=== PATIENT | female | born 1970 | race Caucasian/White ===

== ENCOUNTER 2017-03-27 12:08 | Day surgery (SDC) | payer BC, OTHER ==
[~2017-03-27] VITALS: Ht 167.6 cm; Wt 121.8 kg
[~2017-03-27 12:08] MED LIST: SERT100T
[2017-03-27 12:37] VITALS: Ht 167.6 cm; Wt 121.8 kg
[2017-03-27] MEDS ORDERED: JANUMET (12:44)
[2017-03-27] MEDS ORDERED: METFORMIN (12:44)
[2017-03-27 13:02] VITALS: BP 129/67; PULSE 59; RESP 23
[2017-03-27] MEDS ORDERED: LIDOCAINE 4% SOLUTION 50 ML BTL ONE (13:59)
--- NOTE | 2017-03-27 14:37 | OPPN ---
Date/Time of Note Date/Time of Note DATE: 03/27/17 TIME: 14:33 Upper endoscopy normal but random biopsy of the stomach and duodenum done separately First symptoms continue consider small bowel series Follow-up 2 weeks in my office Operative Report Preoperative Diagnosis Abdominal pain nausea vomiting diarrhea Postoperative Diagnosis Normal upper endoscopy Operation/Procedure Performed EGD biopsy of the duodenum , random biopsy of stomach Surgeon see signature line learning and development assistant None Anesthesia: moderate sedation (Versed 3 mg/fentanyl 50 mcg/total. Of moderate sedation 20 minutes) Estimated blood loss: none Transfusion Required none Specimen Biopsy of the duodenum to rule out causes of diarrhea Biopsy of stomach random to rule out H. pylori Grafts/Implants none Complications none OLINDA JIMÉNEZ MD Mar 27, 2017 14:37
[2017-03-27] MEDS ORDERED: MIDAZOLAM 1 MG/ML 2 ML INJ ONE ×2 (14:38→14:39)
[2017-03-27] MEDS ORDERED: FENTAnyl 50 MCG/ML VIAL ONE (14:39)
[2017-03-27 14:49] VITALS: BP 141/72; RESP 18
--- NOTE | 2017-03-27 15:03 | GILP ---
DATE OF PROCEDURE: 03/27/2017 DIAGNOSIS: Abdominal pain, nausea, vomiting, and diarrhea. PROCEDURES: EGD, biopsy of the duodenal bulb, and biopsy of the stomach. POSTOP DIAGNOSIS: Essentially normal upper endoscopy. DESCRIPTION OF PROCEDURE: The patient was put in left lateral decubitus, after obtaining informed consent, was given 4 percent xylocaine 2 gargle and she received 3 mg IV Versed and 50 mcg of fentanyl. I very carefully advanced Olympus video upper endoscope into the esophagus, stomach and duodenum. Esophagus in its entire length is normal. The GE junction normal. Stomach, including retroflexion of the fundus yaritza, body and antrum normal, but random biopsy done on the way out to rule out any H pylori. Duodenal medially entered through the pyloric channel, duodenal bulb, first and second part normal. Biopsies were done from the third and second part because of history of diarrhea and sent to histopathology. Postop the patient had no complications. PLAN: Will be to await for biopsy report. Follow up as outpatient. If she continues to have symptoms, consider small bowel series. Dictated By: Becka Salinas MD /yasmin/john /Document#: [id number] CC: Alvaro Hernandez MD; Dr. Alvaro Holley;*[facility]*
== END 2017-03-27 15:26 | disposition home or self-care (01) ==
LOC: GIL 12:08
PROVIDERS: ATTEND Internal Medicine
DX: R10.9 Unspecified abdominal pain (principal); R11.2 Nausea with vomiting, unspecified; R19.7 Diarrhea, unspecified; E66.9 Obesity, unspecified; Z68.41 Body mass index [BMI] 40.0-44.9, adult; Z87.11 Personal history of peptic ulcer disease
CPT/HCPCS: 43239; 82962; 88305; J2250; J3010; Z7610

== ENCOUNTER 2018-02-24 12:14 | Day surgery (SDC) | END 2018-02-24 16:00 | disposition home or self-care (01) ==

== ENCOUNTER 2018-09-23 07:43 | Inpatient (IN) | payer BC ==
[~2018-09-23] VITALS: Ht 167.6 cm; Wt 100.1 kg
[2018-09-23] VITALS (36 sets, daily range): BP systolic 98–163; BP diastolic 60–91; PULSE 68–114; RESP 14–31; Ht 167.6 cm; Wt 100.1 kg
[~2018-09-23 07:43] MED LIST changes: +ASPI-1046 PO; +ATOR40TA68 PO; +CEFAZOLIN 2 GM/50 ML (PMX) 50 ML IVPB ONE; +CETI10CA PO; +EMPA25TA PO; +LANS15CA5 PO; +MTF1000T PO; +SERT-165 PO; -SERT100T; +SOD CHLORIDE 0.9% 1,000 ML IV SCH
[2018-09-23] MEDS ORDERED: PHEN37.53 PO (08:39)
[2018-09-23] MEDS ORDERED: ERGO500013 PO (08:40)
[2018-09-23] MEDS ORDERED: BUPIVACAINE 0.25% (MPF) 30 ML INJ ONE (11:34)
[2018-09-23] MEDS ORDERED: POLYMYXIN/BACITRACIN 1L IRRIG ONE (11:34)
--- NOTE | 2018-09-23 11:43 | PREAC ---
Date/Time of Note Date/Time of Note DATE: 09/23/18 TIME: 11:40 Anesthesia Eval and Record Evaluation Time Pre-Procedure Interview DATE: 09/23/18 TIME: 11:40 Age 48 Sex female NPO: 8 hrs Preoperative diagnosis VENTRAL INCISIONAL HERNIA Planned procedure OPEN COMPONENT SEPARATION AND INCISIONAL HERNIA REPAIR Past Medical History Past Medical History: Includes GI: Obesity Surgery & Anesthesia Issues No known issue Meds Anticoagulation: Yes Beta Jeana within 24 hr: Yes Reported Medications Ergocalciferol (Vitamin D2) (VITAMIN D2) 50,000 Unit Capsule, 85155 UNIT PO EVERY THURSDAY, CAP 09/23/18 Phentermine Hcl (Phentermine Hcl) 37.5 Mg Tablet, 37.5 MG PO DAILY, TAB 09/23/18 Aspirin* (Aspirin* (EC)) 81 Mg Tablet.dr, 81 MG PO DAILY, TAB 02/23/18 Lansoprazole* (Lansoprazole*) 15 Mg Capsule.dr, 15 MG PO DAILY, CAP 02/23/18 Empagliflozin (Jardiance) 25 Mg Tablet, 25 MG PO, TAB 02/23/18 Atorvastatin* (Atorvastatin*) 40 Mg Tablet, 20 MG PO QHS, #30 TAB 02/23/18 Sertraline Hcl* (Sertraline Hcl*) 100 Mg Tablet, 100 MG PO DAILY, #30 TAB 02/23/18 Metformin* (Glucophage*) 1,000 Mg Tablet, 1000 MG PO BID, #60 TAB 02/23/18 Discontinued Reported Medications Cetirizine Hcl* (Zyrtec*) 10 Mg Capsule, 10 MG PO DAILY, TAB 02/23/18 Current Medications Sodium Chloride 1,000 ml @ 75 mls/hr [id number] IV ; Start 09/23/18 at 07:00 Meds reviewed: Yes Allergies Coded Allergies: No Known Allergies (Verified Allergy, Unknown, 09/23/18) Allergies Reviewed: Yes Labs/Studies Labs Reviewed: Reviewed by anesthesiologist test: N/A Studies: ECG (NL), CXR (NAPD) Pre-procedure Exam Last vitals Vital Signs Date Temp Pulse Resp B/P (MAP) Pulse Ox O2 O2 Flow FiO2 Time Delivery Rate 09/23/18 96.7 72 16 123/80 97 Room Air 10:07 (94) Airway: Adequate mouth opening, Adequate thyromental dist Mallampati: Mallampati II Teeth: Abnormal (SEVERAL MISSING TEETH, NO LOOSE, TOP) Lung: Normal Heart: Normal ASA Physical Status ASA physical status: 2 Emergency: None Planned Anesthetic General/MAC: ETT Neuraxial: Spinal Planned Pain Management Sub-arachniod narcotics, Parenteral pain med Pre-operative Attestations Prior to commencing anesthesia and surgery, the patient was re-evaluated, there was verification of: *The patient's identity *The results of appropriate recent lab work and preoperative vital signs *The above evaluation not changing prior to induction *Anesthetic plan, risk benefits, alternative and complications discussed with patient/family; questions answered; patient/family understands, accepts and wishes to proceed. Oli Nation M.D. Sep 23, 2018 11:43
[2018-09-23] MEDS ORDERED: morphine SULFATE/PF (10 MG/10 ML) INJ ONE (11:49)
[2018-09-23] MEDS ORDERED: EPINEPHrine 1 MG INJ ONE (11:49)
[2018-09-23] MEDS ORDERED: GLYCOPYRROLATE 0.4 MG INJ ONE (11:56)
[2018-09-23] MEDS ORDERED: NEOSTIGMINE 3 MG/3 ML SYRINGE ONE (11:56)
[2018-09-23] MEDS ORDERED: PROPOFOL 20 ML ONE (11:56)
[2018-09-23] MEDS ORDERED: CEFAZOLIN 1 GM INJ ONE (11:56)
[2018-09-23] MEDS ORDERED: ROCURONIUM 50 MG INJ ONE ×2 (11:56→12:00)
[2018-09-23] MEDS ORDERED: ONDANSETRON 4 MG INJ ONE (11:57)
[2018-09-23] MEDS ORDERED: MIDAZOLAM 1 MG/ML 2 ML INJ ONE (11:57)
[2018-09-23] MEDS ORDERED: DEXAMETHASONE 4 MG/ML 5 ML INJ ONE (11:57)
[2018-09-23] MEDS ORDERED: FENTAnyl 50 MCG/ML VIAL ONE ×3 (11:57→13:23)
[2018-09-23] MEDS ORDERED: DESFLURANE 15 MIN ONE (12:00)
[2018-09-23] MEDS ORDERED: IPRATROPIUM (NEB) 0.5 MG/2.5 ML AMP HHN PRN (12:00)
[2018-09-23] MEDS ORDERED: DIPHENHYDRAMINE 50 MG INJ IV PRN ×2 (12:00→12:30)
[2018-09-23] MEDS ORDERED: ONDANSETRON 4 MG INJ IV PRN ×2 (12:00→12:30)
[2018-09-23] MEDS ORDERED: FENTAnyl 50 MCG/ML VIAL IV PRN ×3 (12:00)
[2018-09-23] MEDS ORDERED: TRIMETHOBENZAMIDE 100 MG/ML VIAL IM PRN ×2 (12:00→12:30)
[2018-09-23] MEDS ORDERED: LABETALOL HCL 20MG INJ IV PRN (12:00)
[2018-09-23] MEDS ORDERED: hydrALAzine 20 MG INJ IV PRN (12:00)
[2018-09-23] MEDS ORDERED: ALBUTEROL 0.083% (NEB) 2.5 MG/3 ML AMP HHN PRN (12:00)
[2018-09-23] MEDS ORDERED: OXYCODONE/ACETAMINOPHEN (5/325) TAB PO PRN ×2 (12:00)
[2018-09-23] MEDS ORDERED: EPHEDrine SULFATE 50 MG/5 ML SYG IV PRN (12:00)
[2018-09-23] MEDS ORDERED: MEPERIDINE 25 MG INJ IV PRN (12:00)
[2018-09-23] MEDS ORDERED: MIDAZOLAM 1 MG/ML 2 ML INJ IV PRN (12:00)
[2018-09-23] MEDS ORDERED: HYDROmorphONE 1 MG/5 ML IV SYRINGE IV PRN ×3 (12:00)
[2018-09-23] MEDS ORDERED: HYDROmorphONE 0.5 MG/0.5 ML SYG IV PRN ×2 (12:30)
[2018-09-23] MEDS ORDERED: NALOXONE (0.4 MG/ML) INJ IV PRN ×2 (12:30→13:30)
[2018-09-23] MEDS ORDERED: ZOLPIDEM 5 MG TAB PO PRN (12:30)
[2018-09-23] MEDS ORDERED: NALBUPHINE HCL (10 MG/1 ML) INJ IV PRN (12:30)
[2018-09-23] MEDS ORDERED: hydrALAzine 20 MG INJ ONE (12:46)
[2018-09-23] MEDS ORDERED: BUPIVACAINE 0.5% (SDV) 30 ML INJ ONE (13:12)
[2018-09-23] MEDS ORDERED: SUGAMMADEX SODIUM 200 MG/2 ML VIAL IV ONE (13:15)
[2018-09-23] MEDS ORDERED: SOD CHLORIDE 0.9% 1,000 ML IV SCH (13:23)
[2018-09-23] MEDS ORDERED: HYDROCODONE/APAP (5/325) TAB PO PRN (13:30)
--- NOTE | 2018-09-23 13:44 | OPR ---
Date/Time of Note Date/Time of Note DATE: 09/23/18 TIME: 13:28 Operative Report Procedure Date: Sep 23, 2018 Preoperative Diagnosis abdominal wall defect and recurrent incarcerated incisional hernia and umbilical hernia Postoperative Diagnosis same Operation/Procedure Performed 1. right rectus musculocutaneous flap cpt code 40107 2. left rectus musculocutaneous flap cpt code 62473 3. implantation of abdominal mesh polypropylene 15 x 15 cm mesh cpt code 61373 4. open lysis of adhesions 5. resection of abdominal mass 7 cm mass 6. localized adjacent tissue transfer with the use of skin flaps of 69 sq cm defect in the abdomen 7. open recurrent incarcerated incisional hernia repair cpt code cpt code 01129 8. removal of foreign body from the abdomen 9. excision of hernia sac 10. open repair of incarcerated umbilical hernia cpt code 20021 11. reimplantation and reconstruction of umbilicus 12. therapeutic injection of subcutaneous local anesthesia Surgeon see signature line Hat Blocking Machine Operator Frankie Kilgore Anesthesia Type: general Estimated Blood Loss: 50 - 100 ml's Transfusion none Specimen hernia sac foreign body abdominal mass Grafts/Implants none Complications none Pt Condition Post Procedure: stable Indications This is a 48-year-old female with a very complicated surgical history. She has had prior incisional hernias that were repaired with recurrence. She also has an umbilical hernia that is incarcerated. In addition she also has a mid epigastric wall defect. She required surgical repair of all the 3 problems. Risks alternatives benefits and percent were discussed with the patient. Potential complications including but not limited to bleeding infection mesh infection mesh migration recurrence of hernias need for additional operations intra-abdominal organ injury were discussed the patient. Patient expressed understanding and consents to the operation. Procedure Description Patient is taken to the OR and prepped and draped in the usual sterile fashion. Surgical time out was performed. IV antibiotics were given. Midline generous incision was made with a 10 blade. There was a pigmented abdominal mass that appeared to be concerning as an incidental finding. This was excised and sent for specimen. The incision was then taken down to the mid epigastric region where there was virgin space and down to the decussation's of the rectus sheath. This area was then divided. The abdomen was entered. This incision was taken superiorly to the subxiphoid region and inferiorly to the area of concern of the multiple hernias. The recurrent incisional hernia defect was identified. This area was then reduced manually. Very large foreign body was identified. Care ful dissection was performed to do extensive lysis of adhesions to take off all the adhesions to the prior surgical site. This foreign body was then also peeled off and resected. This foreign body was then sent for specimen. Additionally there was a hernia sac was also resected and sent for specimen. The incision was then taken down further and the umbilical hernia was identifi ed. This was also opened and manually reduced after full reduction of both hernias, the incision was extended inferiorly to the area of strong fascial tissue. We then developed the left rectus muscular cutaneous flap. The retrorectus space was entered by first identifying the rectus sheath and making a small incision in the retrorectus space. This incision was then extended sup eriorly all the way to the subxiphoid space and all the way inferiorly to the area of the most inferior point of the incision. We also did this on the right side by developing the right rectus musculocutaneous flap. A small incision was made in the retrorectus space and this incision was extended superiorly all the way to the subxiphoid space and inferiorly to the most inferior aspect of the incision. Additional lysis of adhesions was performed to take away any adhesions against the anterior abdominal wall. The fascial edges were freshened of the posterior rectus sheath. The posterior rectus sheath was then reapproximated by running a #1 loop PDS from the superior incisional point although to the midpoint and from the inferior incisional point to the midpoint this was then tied down in the middle. After developing the retrorectus space and ensuring good hemostasis a polypropylene mesh 15 x 15 cm mesh was cut to fashion in a diagonal aspect to allow coverage of this whole incision. This was placed in the retrorectus space with multiple interrupted #1 Prolenes along the anterior rectus sheath with interrupted sutures on both the rectus muscles and at the apex and the inferior aspect of the incision. Once again hemostasis was ensured. The 2 right and left rectus muscular cutaneous flaps were then reapproximated with a running #1 loop PDS from superior to inferior and inferior superior and tied in the middle. The surgical wound was then reexamined for hemostasis and good hemostasis was established. This allowed d repair of the midepigastric hernia and the recurrent incisional incarcerated hernia and the umbilical hernia. The umbilicus had been disconnected and the umbilical stalk was reconnected to the anterior abdominal wall with an interrupted 2-0 Vicryl. Due to the very large tissue defect localized adjacent transfer with the use of skin flaps were used to close the large wound defect. The skin was closed with interrupted 3-0 Vicryl and skin pino. Spinal anesthesia was performed by the anesthesiologist the beginning of the case. Additional subcutaneous local anesthesia was injected throughout the incision site. Dry dressings were applied. Logan DE LA ROSA Sep 23, 2018 13:38
[2018-09-23] MEDS: HYDROmorphONE 0.2 MG/ML PCA IV SCH ×2 (13:51→18:41)
[2018-09-23] MEDS: CEFAZOLIN 2 GM/50 ML (PMX) 50 ML IVPB SCH ×2 (14:35→21:54)
[2018-09-23] MEDS: POTASSIUM CHLORIDE 40 MEQ in SOD CHLORIDE 0.45% 1,000 ML IV SCH (18:30)
[2018-09-23] MEDS ORDERED: GLUCOSE GEL 15 GRAM TUBE PO PRN ×2 (21:00)
[2018-09-23] MEDS ORDERED: DEXTROSE 50% 50 ML SYRINGE IV PRN ×2 (21:00)
[2018-09-23] MEDS ORDERED: GLUCOSE GEL 15 GRAM TUBE BUCCAL PRN (21:00)
[2018-09-23] MEDS: ACCU-CHEK XX SCH (21:00)
[2018-09-23] MEDS ORDERED: GLUCAGON 1 MG INJ IM PRN (21:00)
[2018-09-23] MEDS: metFORMIN 500 MG TAB PO SCH (21:26)
[2018-09-23] MEDS: ATORVASTATIN 20 MG TAB PO SCH (21:26)
[2018-09-24 00:15] VITALS: BP 148/86; PULSE 84; RESP 20
[2018-09-24] MEDS: HYDROmorphONE 0.2 MG/ML PCA IV SCH ×3 (00:39→14:31)
[2018-09-24] MEDS: POTASSIUM CHLORIDE 40 MEQ in SOD CHLORIDE 0.45% 1,000 ML IV SCH ×2 (02:00→06:58)
[2018-09-24] MEDS ORDERED: LANSOPRAZOLE 15 MG CAP PO SCH (06:00)
[2018-09-24] MEDS: CEFAZOLIN 2 GM/50 ML (PMX) 50 ML IVPB SCH (07:33)
[2018-09-24 08:29] VITALS: BP 148/77; PULSE 75; RESP 20
[2018-09-24] MEDS: ACCU-CHEK XX SCH ×4 (08:30→21:00)
[2018-09-24] MEDS: metFORMIN 500 MG TAB PO SCH ×2 (08:48→18:28)
[2018-09-24] MEDS: SERTRALINE 100 MG TAB PO SCH (08:48)
[2018-09-24] MEDS: ASPIRIN (EC) 81 MG TAB PO SCH (08:48)
[2018-09-24] MEDS ORDERED: PHENTERMINE HCL 37.5 MG PO SCH (09:00)
[2018-09-24] MEDS ORDERED: 1/2 NS + KCL 20 MEQ 1,000 ML IV SCH (10:30)
[2018-09-24] MEDS ORDERED: ONDANSETRON 4 MG INJ IV PRN (10:30)
--- NOTE | 2018-09-24 11:18 | HP ---
Date/Time of Note Date/Time of Note DATE: 09/24/18 TIME: 10:39 Assessment/Plan VTE Prophylaxis Risk score (from Nsg)>0 risk: 2 SCD applied (from Nsg): Yes Lines/Catheters IV Catheter Type (from Nrsg): Peripheral IV Assessment/Plan Assessment/Plan -abdominal wall defect and recurrent incarcerated incisional hernia and umbilical hernia - open recurrent incarcerated incisional hernia repair; reimplantation and reconstruction of umbilicus; sp resection of abdominal mass 7 cm mass - per surgery - IVF - pain control - SCD - Acute nausea/vomitting - per sx - NGT to Low intermittent suction - Drug use- occasional Patient seen in collaboration with Dr Mi Result Diagram: 09/24/186 09/24/18 0446 Results 24hrs Laboratory Tests Test 09/23/18 14:15 09/23/18 14:31 09/23/18 15:12 09/23/18 18:25 White Blood Count 12.7 H Red Blood Count 5.36 Hemoglobin 14.0 Hematocrit 45.4 Mean Corpuscular 84.7 Volume Mean Corpuscular 26.1 L Hemoglobin Mean Corpuscular 30.8 L Hemoglobin Concent Red Cell 14.2 Distribution Width Platelet Count 263 Mean Platelet 9.9 Volume Immature 0.500 H Granulocytes % Neutrophils % 77.3 H Lymphocytes % 16.9 Monocytes % 3.1 Eosinophils % 1.8 Basophils % 0.4 Nucleated Red 0.0 Blood Cells % Immature 0.060 H Granulocytes # Neutrophils # 9.8 H Lymphocytes # 2.2 Monocytes # 0.4 Eosinophils # 0.2 Basophils # 0.1 Nucleated Red 0.0 Blood Cells # CBC Results 1 *H Faxed/Phoned Sodium Level 145 H 143 Potassium Level 2.5 *L 4.2 Chloride Level 118 H 108 # Carbon Dioxide 17 L 25 Level Anion Gap 10 10 Blood Urea 10 14 Nitrogen Creatinine 0.34 L 0.54 Est Glomerular > 60 > 60 Filtrat Rate mL/min Glucose Level 95 122 Calcium Level 5.9 *L 9.7 Total Bilirubin 0.2 Direct Bilirubin 0.00 Indirect Bilirubin 0.2 Aspartate Amino 11 L Transf (AST/SGOT) Alanine 21 Aminotransferase ( ALT/SGPT) Alkaline 53 Phosphatase Total Protein 4.5 L Albumin 2.3 L Globulin 2.20 Albumin/Globulin 1.04 Ratio Bedside Glucose 122 150 Test 09/23/18 21:24 09/24/18 04:46 09/24/18 07:02 09/24/18 08:52 Bedside Glucose 150 107 White Blood Count 11.5 H Red Blood Count 4.66 Hemoglobin 12.1 Hematocrit 40.2 Mean Corpuscular 86.3 Volume Mean Corpuscular 26.0 L Hemoglobin Mean Corpuscular 30.1 L Hemoglobin Concent Red Cell 14.3 Distribution Width Platelet Count 275 Mean Platelet 10.3 Volume Immature 0.400 Granulocytes % Neutrophils % 82.3 H Lymphocytes % 10.8 L Monocytes % 6.3 Eosinophils % 0.0 Basophils % 0.2 Nucleated Red 0.0 Blood Cells % Immature 0.050 H Granulocytes # Neutrophils # 9.4 H Lymphocytes # 1.2 Monocytes # 0.7 Eosinophils # 0.0 Basophils # 0.0 Nucleated Red 0.0 Blood Cells # Sodium Level 139 Potassium Level 5.3 H Chloride Level 101 Carbon Dioxide 27 Level Anion Gap 11 Blood Urea 14 Nitrogen Creatinine 0.46 Est Glomerular > 60 Filtrat Rate mL/min Glucose Level 102 Calcium Level 9.6 Total Bilirubin 0.4 Direct Bilirubin 0.00 Indirect Bilirubin 0.4 Aspartate Amino 23 Transf (AST/SGOT) Alanine 16 Aminotransferase ( ALT/SGPT) Alkaline 82 # Phosphatase Total Protein 7.0 # Albumin 4.1 # Globulin 2.90 Albumin/Globulin 1.41 Ratio Lab Scanned Report REFERENCE LAB HPI/ROS Admit Date/Time Admit Date/Time Sep 23, 2018 at 13:59 ROS This is a 48-year-old female with a very complicated surgical history who had prior incisional hernias that were repaired with recurrence. She also has an umbilical hernia that is incarcerated. In addition she also has a mid epigastric wall defect. Per surgery, she required surgical repair of all the 3 problems. Patient is assessed in room- c/o abdominal incisional pain. denies any chest pain. Patient is admitted for further treatment/evaluation under Dr Mi for further treatment and evaluation.. Patient c/o nausea and started throwing up per staff- Dr Arreola was notified; NGT inserted. cont to monitor Respiratory: no complaints Cardiovascular: no complaints Gastrointestinal: pain Musculoskeletal: no complaints Skin: no complaints Neurologic: no complaints Endocrine: no complaints PMH/Family/Social Past Medical History Medications Current Medications Zolpidem Tartrate (Ambien) 5 mg HS MAY REPEAT X 1 PRN PO .INSOMNIA; Start 09/23/18 at 12:30 Cefazolin Sodium/ Dextrose 50 ml @ 100 mls/hr Q8H IVPB Last administered on 09/24/18at 07:33; Admin Dose 100 MLS/HR; Start 09/23/18 at 13:30; Stop 09/24/18 at 13:29 Acetaminophen/ Hydrocodone Bitart ([place] (5/325)) 1 tab Q6H PRN PO PAIN LEVEL 6-10; Start 09/23/18 at 13:30; Status Hold Naloxone HCl (Narcan) 0.2 mg Q2M PRN IV RR 8 BREATHS/MIN OR LESS; Start 09/23/18 at 13:30 Hydromorphone HCl (Dilaudid [employer]) Q4PCA IV Last administered on 09/24/18at 07:03; Admin Dose 6 MG; Start 09/23/18 at 13:30 Aspirin (Halfprin) 81 mg DAILY PO Last administered on 09/24/18 08:48; Admin Dose 81 MG; Start 09/24/18 at 09:00 Atorvastatin Calcium (Lipitor) 20 mg QHS PO Last administered on 09/23/18 21:26; Admin Dose 20 MG; Start 09/23/18 at 21:00 Lansoprazole (Prevacid) 15 mg DAILY@0600 PO Last administered on 09/24/18at 06:52; Admin Dose 15 MG; Start 09/24/18 at 06:00 Metformin HCl (Glucophage) 1,000 mg BID WITH MEALS PO Last administered on 09/24/18 08:48; Admin Dose 1,000 MG; Start 09/23/18 at 21:00 Sertraline HCl (Zoloft) 100 mg DAILY PO Last administered on 09/24/18 08:48; Admin Dose 100 MG; Start 09/24/18 at 09:00 Miscellaneous Information 37.5 mg DAILY PO ; Start 09/24/18 at 09:00; Status UNV Diagnostic Test (Pha) (Accu-Chek) 1 ea AC MEALS AND BEDTIME XX Last administered on 09/24/18 08:30; Admin Dose 1 EA; Start 09/23/18 at 21:00 Miscellaneous Information 1 ea NOTE XX ; Start 09/23/18 at 21:00 Glucose (Glutose) 15 gm Q15M PRN PO DECREASED GLUCOSE; Start 09/23/18 at 21:00 Glucose (Glutose) 22.5 gm Q15M PRN PO DECREASED GLUCOSE; Start 09/23/18 at 21:00 Dextrose (D50w Syringe) 25 ml Q15M PRN IV DECREASED GLUCOSE; Start 09/23/18 at 21:00 Dextrose (D50w Syringe) 50 ml Q15M PRN IV DECREASED GLUCOSE; Start 09/23/18 at 21:00 Glucagon (Glucagen) 1 mg Q15M PRN IM DECREASED GLUCOSE; Start 09/23/18 at 21:00 Glucose (Glutose) 15 gm Q15M PRN BUCCAL DECREASED GLUCOSE; Start 09/23/18 at 21:00 Ondansetron HCl (Zofran Inj) 4 mg Q6H PRN IV NAUSEA AND/OR VOMITING; Start 09/24/18 at 10:30 Potassium Chloride/Sodium Chloride 1,000 ml @ 100 mls/hr Q10H IV Last administered on 09/24/18at 10:29; Admin Dose 100 MLS/HR; Start 09/24/18 at 10:30 Coded Allergies: No Known Allergies (Verified Allergy, Unknown, 09/23/18) Past Surgical History tonsillectomy ankle sx Social History Alcohol Use: none Smoking Status: Never smoker Drug Use: other Exam/Review of Systems Vital Signs Vitals Vital Signs Date Temp Pulse Resp B/P (MAP) Pulse Ox O2 O2 Flow FiO2 Time Delivery Rate 09/24/18 98.3 75 20 148/77 96 08:29 (100) 09/24/18 2.0 00:15 09/23/18 Nasal 19:40 Cannula Intake and Output 09/23/18 09/23/18 09/24/18 1515:00 23:00 07:00 IntakeIntake Total 2000 ml 660 ml 1360 ml OutputOutput Total 100 ml 500 ml 700 ml BalanceBalance 1900 ml 160 ml 660 ml Exam Constitutional: alert, well developed Psych: nl mood/affect Eyes: nl lids, nl sclera Neck: non-tender Respiratory: diminished breath sounds Cardiovascular: nl pulses, other (s1s2) Gastrointestinal: soft, non-tender, other (surgical abdomen; abdominal pad dressing noted- ) Musculoskeletal: nl extremities to inspection Neurological: nl speech Lymph: nontender SADEORA,TREVOR Sep 24, 2018 10:49
--- NOTE | 2018-09-24 12:55 | PN ---
Date/Time of Note Date/Time of Note DATE: 09/24/18 TIME: 12:54 Assessment/Plan VTE Prophylaxis Risk score (from Nsg)>0 risk: 2 SCD applied (from Nsg): Yes Pharmacological prophylaxis: other Lines/Catheters IV Catheter Type (from Nrsg): Peripheral IV Assessment/Plan Assessment/Plan s/p component separation doing well needs continued pain control with INFRASTRUCTURE ENGINEER Result Diagram: 09/24/18 0446 09/24/18 0446 Results 24hrs Laboratory Tests Test 09/23/18 14:15 09/23/18 14:31 09/23/18 15:12 09/23/18 18:25 White Blood Count 12.7 H Red Blood Count 5.36 Hemoglobin 14.0 Hematocrit 45.4 Mean Corpuscular 84.7 Volume Mean Corpuscular 26.1 L Hemoglobin Mean Corpuscular 30.8 L Hemoglobin Concent Red Cell 14.2 Distribution Width Platelet Count 263 Mean Platelet 9.9 Volume Immature 0.500 H Granulocytes % Neutrophils % 77.3 H Lymphocytes % 16.9 Monocytes % 3.1 Eosinophils % 1.8 Basophils % 0.4 Nucleated Red 0.0 Blood Cells % Immature 0.060 H Granulocytes # Neutrophils # 9.8 H Lymphocytes # 2.2 Monocytes # 0.4 Eosinophils # 0.2 Basophils # 0.1 Nucleated Red 0.0 Blood Cells # CBC Results 1 *H Faxed/Phoned Sodium Level 145 H 143 Potassium Level 2.5 *L 4.2 Chloride Level 118 H 108 # Carbon Dioxide 17 L 25 Level Anion Gap 10 10 Blood Urea 10 14 Nitrogen Creatinine 0.34 L 0.54 Est Glomerular > 60 > 60 Filtrat Rate mL/min Glucose Level 95 122 Calcium Level 5.9 *L 9.7 Total Bilirubin 0.2 Direct Bilirubin 0.00 Indirect Bilirubin 0.2 Aspartate Amino 11 L Transf (AST/SGOT) Alanine 21 Aminotransferase ( ALT/SGPT) Alkaline 53 Phosphatase Total Protein 4.5 L Albumin 2.3 L Globulin 2.20 Albumin/Globulin 1.04 Ratio Bedside Glucose 122 150 Test 09/23/18 21:24 09/24/18 04:46 09/24/18 07:02 09/24/18 08:52 Bedside Glucose 150 107 White Blood Count 11.5 H Red Blood Count 4.66 Hemoglobin 12.1 Hematocrit 40.2 Mean Corpuscular 86.3 Volume Mean Corpuscular 26.0 L Hemoglobin Mean Corpuscular 30.1 L Hemoglobin Concent Red Cell 14.3 Distribution Width Platelet Count 275 Mean Platelet 10.3 Volume Immature 0.400 Granulocytes % Neutrophils % 82.3 H Lymphocytes % 10.8 L Monocytes % 6.3 Eosinophils % 0.0 Basophils % 0.2 Nucleated Red 0.0 Blood Cells % Immature 0.050 H Granulocytes # Neutrophils # 9.4 H Lymphocytes # 1.2 Monocytes # 0.7 Eosinophils # 0.0 Basophils # 0.0 Nucleated Red 0.0 Blood Cells # Sodium Level 139 Potassium Level 5.3 H Chloride Level 101 Carbon Dioxide 27 Level Anion Gap 11 Blood Urea 14 Nitrogen Creatinine 0.46 Est Glomerular > 60 Filtrat Rate mL/min Glucose Level 102 Calcium Level 9.6 Total Bilirubin 0.4 Direct Bilirubin 0.00 Indirect Bilirubin 0.4 Aspartate Amino 23 Transf (AST/SGOT) Alanine 16 Aminotransferase ( ALT/SGPT) Alkaline 82 # Phosphatase Total Protein 7.0 # Albumin 4.1 # Globulin 2.90 Albumin/Globulin 1.41 Ratio Lab Scanned Report REFERENCE LAB Subjective 24 Hr Interval Summary Free Text/Dictation patient vomited from the broth but doesn't have nausea or any other problems Exam/Review of Systems Exam Vitals Vital Signs Date Temp Pulse Resp B/P (MAP) Pulse Ox O2 O2 Flow FiO2 Time Delivery Rate 09/24/18 98.3 75 20 148/77 96 08:29 (100) 09/24/18 2.0 00:15 09/23/18 Nasal 19:40 Cannula Intake and Output 09/23/18 09/23/18 09/24/18 1515:00 23:00 07:00 IntakeIntake Total 2000 ml 660 ml 1360 ml OutputOutput Total 100 ml 500 ml 700 ml BalanceBalance 1900 ml 160 ml 660 ml Exam c/d/i Results Results 24hrs Laboratory Tests Test 09/23/18 14:15 09/23/18 14:31 09/23/18 15:12 09/23/18 18:25 White Blood Count 12.7 H Red Blood Count 5.36 Hemoglobin 14.0 Hematocrit 45.4 Mean Corpuscular 84.7 Volume Mean Corpuscular 26.1 L Hemoglobin Mean Corpuscular 30.8 L Hemoglobin Concent Red Cell 14.2 Distribution Width Platelet Count 263 Mean Platelet 9.9 Volume Immature 0.500 H Granulocytes % Neutrophils % 77.3 H Lymphocytes % 16.9 Monocytes % 3.1 Eosinophils % 1.8 Basophils % 0.4 Nucleated Red 0.0 Blood Cells % Immature 0.060 H Granulocytes # Neutrophils # 9.8 H Lymphocytes # 2.2 Monocytes # 0.4 Eosinophils # 0.2 Basophils # 0.1 Nucleated Red 0.0 Blood Cells # CBC Results 1 *H Faxed/Phoned Sodium Level 145 H 143 Potassium Level 2.5 *L 4.2 Chloride Level 118 H 108 # Carbon Dioxide 17 L 25 Level Anion Gap 10 10 Blood Urea 10 14 Nitrogen Creatinine 0.34 L 0.54 Est Glomerular > 60 > 60 Filtrat Rate mL/min Glucose Level 95 122 Calcium Level 5.9 *L 9.7 Total Bilirubin 0.2 Direct Bilirubin 0.00 Indirect Bilirubin 0.2 Aspartate Amino 11 L Transf (AST/SGOT) Alanine 21 Aminotransferase ( ALT/SGPT) Alkaline 53 Phosphatase Total Protein 4.5 L Albumin 2.3 L Globulin 2.20 Albumin/Globulin 1.04 Ratio Bedside Glucose 122 150 Test 09/23/18 21:24 09/24/18 04:46 09/24/18 07:02 09/24/18 08:52 Bedside Glucose 150 107 White Blood Count 11.5 H Red Blood Count 4.66 Hemoglobin 12.1 Hematocrit 40.2 Mean Corpuscular 86.3 Volume Mean Corpuscular 26.0 L Hemoglobin Mean Corpuscular 30.1 L Hemoglobin Concent Red Cell 14.3 Distribution Width Platelet Count 275 Mean Platelet 10.3 Volume Immature 0.400 Granulocytes % Neutrophils % 82.3 H Lymphocytes % 10.8 L Monocytes % 6.3 Eosinophils % 0.0 Basophils % 0.2 Nucleated Red 0.0 Blood Cells % Immature 0.050 H Granulocytes # Neutrophils # 9.4 H Lymphocytes # 1.2 Monocytes # 0.7 Eosinophils # 0.0 Basophils # 0.0 Nucleated Red 0.0 Blood Cells # Sodium Level 139 Potassium Level 5.3 H Chloride Level 101 Carbon Dioxide 27 Level Anion Gap 11 Blood Urea 14 Nitrogen Creatinine 0.46 Est Glomerular > 60 Filtrat Rate mL/min Glucose Level 102 Calcium Level 9.6 Total Bilirubin 0.4 Direct Bilirubin 0.00 Indirect Bilirubin 0.4 Aspartate Amino 23 Transf (AST/SGOT) Alanine 16 Aminotransferase ( ALT/SGPT) Alkaline 82 # Phosphatase Total Protein 7.0 # Albumin 4.1 # Globulin 2.90 Albumin/Globulin 1.41 Ratio Lab Scanned Report REFERENCE LAB Medications Medication Current Medications Zolpidem Tartrate (Ambien) 5 mg HS MAY REPEAT X 1 PRN PO .INSOMNIA; Start 09/23/18 at 12:30 Cefazolin Sodium/ Dextrose 50 ml @ 100 mls/hr Q8H IVPB Last administered on 09/24/18 07:33; Admin Dose 100 MLS/HR; Start 09/23/18 at 13:30; Stop 09/24/18 at 13:29 Acetaminophen/ Hydrocodone Bitart ([place] (5/325)) 1 tab Q6H PRN PO PAIN LEVEL 6-10; Start 09/23/18 at 13:30; Status Hold Naloxone HCl (Narcan) 0.2 mg Q2M PRN IV RR 8 BREATHS/MIN OR LESS; Start 09/23/18 at 13:30 Hydromorphone HCl (Dilaudid INFRASTRUCTURE ENGINEER) Q4PCA IV Last administered on 09/24/18 07:03; Admin Dose 6 MG; Start 09/23/18 at 13:30 Aspirin (Halfprin) 81 mg DAILY PO Last administered on 09/24/18 08:48; Admin Dose 81 MG; Start 09/24/18 at 09:00 Atorvastatin Calcium (Lipitor) 20 mg QHS PO Last administered on 09/23/18 21:26; Admin Dose 20 MG; Start 09/23/18 at 21:00 Lansoprazole (Prevacid) 15 mg DAILY@0600 PO Last administered on 09/24/18 06:52; Admin Dose 15 MG; Start 09/24/18 at 06:00 Metformin HCl (Glucophage) 1,000 mg BID WITH MEALS PO Last administered on 09/24/18 08:48; Admin Dose 1,000 MG; Start 09/23/18 at 21:00 Sertraline HCl (Zoloft) 100 mg DAILY PO Last administered on 09/24/18 08:48; Admin Dose 100 MG; Start 09/24/18 at 09:00 Miscellaneous Information 37.5 mg DAILY PO ; Start 09/24/18 at 09:00; Status UNV Diagnostic Test (Pha) (Accu-Chek) 1 ea AC MEALS AND BEDTIME XX Last administered on 3/22/19at 08:30; Admin Dose 1 EA; Start 09/23/18 at 21:00 Miscellaneous Information 1 ea NOTE XX ; Start 09/23/18 at 21:00 Glucose (Glutose) 15 gm Q15M PRN PO DECREASED GLUCOSE; Start 09/23/18 at 21:00 Glucose (Glutose) 22.5 gm Q15M PRN PO DECREASED GLUCOSE; Start 09/23/18 at 21:00 Dextrose (D50w Syringe) 25 ml Q15M PRN IV DECREASED GLUCOSE; Start 09/23/18 at 21:00 Dextrose (D50w Syringe) 50 ml Q15M PRN IV DECREASED GLUCOSE; Start 09/23/18 at 21:00 Glucagon (Glucagen) 1 mg Q15M PRN IM DECREASED GLUCOSE; Start 09/23/18 at 21:00 Glucose (Glutose) 15 gm Q15M PRN BUCCAL DECREASED GLUCOSE; Start 09/23/18 at 21:00 Ondansetron HCl (Zofran Inj) 4 mg Q6H PRN IV NAUSEA AND/OR VOMITING; Start 09/24/18 at 10:30 Potassium Chloride/Sodium Chloride 1,000 ml @ 100 mls/hr Q10H IV Last administered on 09/24/18at 10:29; Admin Dose 100 MLS/HR; Start 09/24/18 at 10:30 Logan DE LA ROSA Sep 24, 2018 12:55
--- NOTE | 2018-09-24 13:48 | HP ---
Date/Time of Note Date/Time of Note DATE: 09/24/18 TIME: 13:39 Assessment/Plan VTE Prophylaxis Risk score (from Ns)>0 risk: 2 SCD applied (from Ns): Yes Pharmacological prophylaxis: NA/contraindicated Pharm contraindication: surgical contra Lines/Catheters IV Catheter Type (from Nrs): Peripheral IV Assessment/Plan Hospital Course 1. Incarcerated umbilical hernia. S/p repair of abdominal wall defect and recurrent incarcerated incisional hernia and umbilical hernia. Postoperative nausea/vomiting once, resolved 2. hx of abdominal hernia repair with mesh 2017 . 3. depression, 4. Leucocytosis. 5. Diabetes mellitus type 2, 6. Hyperlipidemia, 7. Vitamin D deficiency, 8. hx of cocaine use in past 9. Obesity 10. Hx of GERD, 11. Hyperkalemia 12. Hypertension Assessment/Plan -surgical consult Dr Arreola -spoke dr Kilgore solid food -dc tomorrow if tolerates and passing gas -ambulate -po meds for pain -K repeat - pain control - DVT prophylaxis SCD -NGT to low cont. suction Result Diagram: 09/24/18 0446 09/24/18 0446 Results 24hrs Laboratory Tests Test 09/23/18 14:15 09/23/18 14:31 09/23/18 15:12 09/23/18 18:25 White Blood Count 12.7 H Red Blood Count 5.36 Hemoglobin 14.0 Hematocrit 45.4 Mean Corpuscular 84.7 Volume Mean Corpuscular 26.1 L Hemoglobin Mean Corpuscular 30.8 L Hemoglobin Concent Red Cell 14.2 Distribution Width Platelet Count 263 Mean Platelet 9.9 Volume Immature 0.500 H Granulocytes % Neutrophils % 77.3 H Lymphocytes % 16.9 Monocytes % 3.1 Eosinophils % 1.8 Basophils % 0.4 Nucleated Red 0.0 Blood Cells % Immature 0.060 H Granulocytes # Neutrophils # 9.8 H Lymphocytes # 2.2 Monocytes # 0.4 Eosinophils # 0.2 Basophils # 0.1 Nucleated Red 0.0 Blood Cells # CBC Results 1 *H Faxed/Phoned Sodium Level 145 H 143 Potassium Level 2.5 *L 4.2 Chloride Level 118 H 108 # Carbon Dioxide 17 L 25 Level Anion Gap 10 10 Blood Urea 10 14 Nitrogen Creatinine 0.34 L 0.54 Est Glomerular > 60 > 60 Filtrat Rate mL/min Glucose Level 95 122 Calcium Level 5.9 *L 9.7 Total Bilirubin 0.2 Direct Bilirubin 0.00 Indirect Bilirubin 0.2 Aspartate Amino 11 L Transf (AST/SGOT) Alanine 21 Aminotransferase ( ALT/SGPT) Alkaline 53 Phosphatase Total Protein 4.5 L Albumin 2.3 L Globulin 2.20 Albumin/Globulin 1.04 Ratio Bedside Glucose 122 150 Test 09/23/18 21:24 09/24/18 04:46 09/24/18 07:02 09/24/18 08:52 Bedside Glucose 150 107 White Blood Count 11.5 H Red Blood Count 4.66 Hemoglobin 12.1 Hematocrit 40.2 Mean Corpuscular 86.3 Volume Mean Corpuscular 26.0 L Hemoglobin Mean Corpuscular 30.1 L Hemoglobin Concent Red Cell 14.3 Distribution Width Platelet Count 275 Mean Platelet 10.3 Volume Immature 0.400 Granulocytes % Neutrophils % 82.3 H Lymphocytes % 10.8 L Monocytes % 6.3 Eosinophils % 0.0 Basophils % 0.2 Nucleated Red 0.0 Blood Cells % Immature 0.050 H Granulocytes # Neutrophils # 9.4 H Lymphocytes # 1.2 Monocytes # 0.7 Eosinophils # 0.0 Basophils # 0.0 Nucleated Red 0.0 Blood Cells # Sodium Level 139 Potassium Level 5.3 H Chloride Level 101 Carbon Dioxide 27 Level Anion Gap 11 Blood Urea 14 Nitrogen Creatinine 0.46 Est Glomerular > 60 Filtrat Rate mL/min Glucose Level 102 Calcium Level 9.6 Total Bilirubin 0.4 Direct Bilirubin 0.00 Indirect Bilirubin 0.4 Aspartate Amino 23 Transf (AST/SGOT) Alanine 16 Aminotransferase ( ALT/SGPT) Alkaline 82 # Phosphatase Total Protein 7.0 # Albumin 4.1 # Globulin 2.90 Albumin/Globulin 1.41 Ratio Lab Scanned Report REFERENCE LAB Test 09/24/18 13:11 Bedside Glucose 108 HPI/ROS Admit Date/Time Admit Date/Time Sep 23, 2018 at 13:59 Hx of Present Illness This is 48-year-old female with history of depression, GERD, diabetes mellitus type 2, hyperlipidemia, vitamin D deficiency, previous surgeries on abdomen, and obesity was seen in Dr Altamirano/Binh office due to abdominal hernia. The surgery herniorrhaphy with mesh was doen 05/2018. Since then pt lost 50 pounds , she also has an abdominal pain. Dr Binh decided to operate on her and pt was sent to [facility]. ROS Gastrointestinal: pain; No no complaints, No blood, No constipation, No decreased appetite, No diarrhea, No flatus, No vomiting, No other PMH/Family/Social Past Medical History Medical History: diabetes, high cholesterol, hypertension Medications Current Medications Zolpidem Tartrate (Ambien) 5 mg HS MAY REPEAT X 1 PRN PO .INSOMNIA; Start 09/23/18 at 12:30 Acetaminophen/ Hydrocodone Bitart ([place] (5/325)) 1 tab Q6H PRN PO PAIN LEVEL 6-10; Start 09/23/18 at 13:30; Status Hold Naloxone HCl (Narcan) 0.2 mg Q2M PRN IV RR 8 BREATHS/MIN OR LESS; Start 09/23/18 at 13:30 Hydromorphone HCl (Dilaudid CASUALTY CLAIM ADJUSTER) Q4PCA IV Last administered on 09/24/18at 07:03; Admin Dose 6 MG; Start 09/23/18 at 13:30 Aspirin (Halfprin) 81 mg DAILY PO Last administered on 09/24/18at 08:48; Admin Dose 81 MG; Start 09/24/18 at 09:00 Atorvastatin Calcium (Lipitor) 20 mg QHS PO Last administered on 09/23/18at 21:26; Admin Dose 20 MG; Start 09/23/18 at 21:00 Lansoprazole (Prevacid) 15 mg DAILY@0600 PO Last administered on 09/24/18at 06:52; Admin Dose 15 MG; Start 09/24/18 at 06:00 Metformin HCl (Glucophage) 1,000 mg BID WITH MEALS PO Last administered on 09/24/18at 08:48; Admin Dose 1,000 MG; Start 09/23/18 at 21:00 Sertraline HCl (Zoloft) 100 mg DAILY PO Last administered on 09/24/18 08:48; Admin Dose 100 MG; Start 09/24/18 at 09:00 Miscellaneous Information 37.5 mg DAILY PO ; Start 09/24/18 at 09:00; Status UNV Diagnostic Test (Pha) (Accu-Chek) 1 ea AC MEALS AND BEDTIME XX Last administered on 09/24/18at 11:10; Admin Dose 1 EA; Start 09/23/18 at 21:00 Miscellaneous Information 1 ea NOTE XX ; Start 09/23/18 at 21:00 Glucose (Glutose) 15 gm Q15M PRN PO DECREASED GLUCOSE; Start 09/23/18 at 21:00 Glucose (Glutose) 22.5 gm Q15M PRN PO DECREASED GLUCOSE; Start 09/23/18 at 21:00 Dextrose (D50w Syringe) 25 ml Q15M PRN IV DECREASED GLUCOSE; Start 09/23/18 at 21:00 Dextrose (D50w Syringe) 50 ml Q15M PRN IV DECREASED GLUCOSE; Start 09/23/18 at 21:00 Glucagon (Glucagen) 1 mg Q15M PRN IM DECREASED GLUCOSE; Start 09/23/18 at 21:00 Glucose (Glutose) 15 gm Q15M PRN BUCCAL DECREASED GLUCOSE; Start 09/23/18 at 21:00 Ondansetron HCl (Zofran Inj) 4 mg Q6H PRN IV NAUSEA AND/OR VOMITING; Start 09/24/18 at 10:30 Potassium Chloride/Sodium Chloride 1,000 ml @ 100 mls/hr Q10H IV Last administered on 09/24/18at 10:29; Admin Dose 100 MLS/HR; Start 09/24/18 at 10:30 Coded Allergies: No Known Allergies (Verified Allergy, Unknown, 09/23/18) Past Surgical History Past Surgical Hx: other ( incisional hernias that were repaired with recurrence. ) Social History Alcohol Use: none Smoking Status: Never smoker Drug Use: cocaine (past), other Exam/Review of Systems Vital Signs Vitals Vital Signs Date Temp Pulse Resp B/P (MAP) Pulse Ox O2 O2 Flow FiO2 Time Delivery Rate 09/24/18 98.3 75 20 148/77 96 08:29 (100) 09/24/18 2.0 00:15 09/23/18 Nasal 19:40 Cannula Intake and Output 09/23/18 09/23/18 09/24/18 1515:00 23:00 07:00 IntakeIntake Total 2000 ml 660 ml 1360 ml OutputOutput Total 100 ml 500 ml 700 ml BalanceBalance 1900 ml 160 ml 660 ml Exam Constitutional: alert, oriented Cardiovascular: regular rate and rhythm Gastrointestinal: soft, surgical scars, other (dressiong on) Genitourinary - Female: CVA tenderness; No nl adnexae, No nl external genitalia, No CMT, No uterus, No other MEZENTSEVA,GARTH Sep 24, 2018 13:48
--- NOTE | 2018-09-24 14:30 | PAC ---
Date/Time of Note Date/Time of Note DATE: 09/24/18 TIME: 14:30 Post-Anesthesia Notes Post-Anesthesia Note Last documented vital signs Vital Signs Date Temp Pulse Resp B/P (MAP) Pulse Ox O2 O2 Flow FiO2 Time Delivery Rate 09/24/18 98.3 75 20 148/77 96 08:29 (100) 09/24/18 2.0 00:15 09/23/18 Nasal 19:40 Cannula Activity: WNL Respiratory function: WNL Cardiovascular function: WNL Mental status: Baseline Pain reasonably controlled: Yes Hydration appropriate: Yes Nausea/Vomiting absent: Yes Oli Nation M.D. Sep 24, 2018 14:30
[2018-09-24 19:15] VITALS: BP 156/76; PULSE 68; RESP 16
[2018-09-24] MEDS: ATORVASTATIN 20 MG TAB PO SCH (21:31)
[2018-09-24] MEDS: HYDROCODONE/APAP (5/325) TAB PO PRN (21:31)
[2018-09-25 02:00] VITALS: BP 161/83; PULSE 70; RESP 18
[2018-09-25] MEDS: HYDROCODONE/APAP (5/325) TAB PO PRN ×2 (04:54→11:09)
[2018-09-25] MEDS ORDERED: LANSOPRAZOLE 15 MG CAP PO SCH (06:00)
[2018-09-25] MEDS: ACCU-CHEK XX SCH ×2 (07:20→12:37)
[2018-09-25 07:49] VITALS: BP 156/76; PULSE 77; RESP 18
[2018-09-25] MEDS: metFORMIN 500 MG TAB PO SCH (08:27)
[2018-09-25] MEDS: SERTRALINE 100 MG TAB PO SCH (08:27)
[2018-09-25] MEDS: ASPIRIN (EC) 81 MG TAB PO SCH (08:28)
[2018-09-25 14:00] VITALS: BP 140/70; RESP 18
--- NOTE | 2018-09-25 15:02 | PDOCDIS ---
Discharge Instructions CONDITION [id number] Patient Condition: [id number] Stable ACTIVITY: [id number] Bathing Restrictions: [id number] Sponge Bath [id number] Activity Restrictions [id number] no shower, do not touch Comment: dresssing FOLLOW UP/APPOINTMENTS Follow-up Plan Dr Arreola office 1 week GARTH EGAN Sep 25, 2018 15:02
--- NOTE | 2018-09-25 15:04 | DS ---
Date/Time of Note Date/Time of Note DATE: 09/25/18 TIME: 15:03 Discharge Summary Admission/Discharge Info Admit Date/Time Sep 24, 2018 at 11:05 Discharge Date/Time Discharge Diagnosis S/p repair of abdominal wall defect and recurrent incarcerated incisional hernia and umbilical hernia. Patient Condition: Stable Consults Dr Arreola surgeon Procedures S/p repair of abdominal wall defect and recurrent incarcerated incisional hernia and umbilical hernia. Hospital Course This is 48-year-old female with history of depression, GERD, diabetes mellitus type 2, hyperlipidemia, vitamin D deficiency, previous surgeries on abdomen, and obesity was seen in Dr Altamirano/Binh office due to abdominal hernia. The surgery herniorrhaphy with mesh was doen 05/2018. Since then pt lost 50 pounds , she also has an abdominal pain. Dr Arreola decided to operate on her and pt was sent to [facility]. 1. Incarcerated umbilical hernia. S/p repair of abdominal wall defect and re current incarcerated incisional hernia and umbilical hernia. 2. hx of abdominal hernia repair with mesh 2017 . 3. depression, 4. Leucocytosis. 5. Diabetes mellitus type 2, 6. Hyperlipidemia, 7. Vitamin D deficiency, 8. hx of cocaine use in past 9. Obesity 10. Hx of GERD, 11. Hyperkalemia 12. Hypertension After surgery pt was seen in medsurgical unit. Nursing reported postoperative nausea/vomiting once. Pt was kept overnight, dr Kilgore from the dr Arreola surgical team followed the pt. He reported that patient is stable. Everything is under control. From surgical point of view is clear for discharged, Pt is tolerated the diet, ambulating , passing the gas. Pt was changed the dressing and sent home in stable condition Home Meds Reported Medications Ergocalciferol (Vitamin D2) (VITAMIN D2) 50,000 Unit Capsule, [address] UNIT PO EVERY THURSDAY, CAP 09/23/18 Phentermine Hcl (Phentermine Hcl) 37.5 Mg Tablet, 37.5 MG PO DAILY, TAB 09/23/18 Aspirin* (Aspirin* (EC)) 81 Mg Tablet., 81 MG PO DAILY, TAB 02/23/18 Lansoprazole* (Lansoprazole*) 15 Mg Capsule., 15 MG PO DAILY, CAP 02/23/18 Empagliflozin (Jardiance) 25 Mg Tablet, 25 MG PO, TAB 02/23/18 Atorvastatin* (Atorvastatin*) 40 Mg Tablet, 20 MG PO QHS, #30 TAB 02/23/18 Sertraline Hcl* (Sertraline Hcl*) 100 Mg Tablet, 100 MG PO DAILY, #30 TAB 02/23/18 Metformin* (Glucophage*) 1,000 Mg Tablet, 1000 MG PO BID, #60 TAB 02/23/18 Discontinued Reported Medications Cetirizine Hcl* (Zyrtec*) 10 Mg Capsule, 10 MG PO DAILY, TAB 02/23/18 Follow-up Plan Dr Arreola office 1 week Primary Care Provider Not On Staff Doctor Time spent on discharge: < 30 minutes Pending Labs Laboratory Tests Test 09/24/18 18:30 09/24/18 21:30 09/25/18 04:43 09/25/18 08:26 Bedside 121 123 108 Glucose mg/dL (70-220) mg/dL (70-220) mg/dL (70-220) White Blood 9.1 Count 10^3/ul (4.8-1 0.8) Red Blood 4.31 Count 10^6/ul (4.20- 5.40) Hemoglobin 11.2 g/dl (12.0-16. 0) Hematocrit 36.5 % (37.0-47.0) Mean 84.7 Corpuscular fl (82.0-101.0 Volume ) Mean 26.0 Corpuscular pg (29.0-33.0) Hemoglobin Mean 30.7 Corpuscular g/dl (32.0-37. Hemoglobin Conc 0) ent Red Cell 14.2 Distribution % (11.5-14.5) Width Platelet Count 233 10^3/UL (140-4 15) Mean Platelet 10.0 Volume fl (7.4-10.4) Immature 0.300 Granulocytes % % (0.001-0.429 ) Neutrophils % 72.7 % (39.0-77.0) Lymphocytes % 20.2 % (15.0-51.0) Monocytes % 6.1 % (0.0-11.0) Eosinophils % 0.3 % (0.0-7.0) Basophils % 0.4 % (0.0-2.0) Nucleated Red 0.0 Blood Cells % /100WBC (0.0-0 .0) Immature 0.030 Granulocytes # 10^3/ul (0.0-0 .031) Neutrophils # 6.6 10^3/ul (1.6-7 .5) Lymphocytes # 1.8 10^3/ul (0.8-2 .9) Monocytes # 0.6 10^3/ul (0.3-0 .9) Eosinophils # 0.0 10^3/ul (0.0-0 .5) Basophils # 0.0 10^3/ul (0.0-0 .1) Nucleated Red 0.0 Blood Cells # 10^3/ul (0.0-0 .0) Sodium Level 140 mmol/L (135-14 4) Potassium 5.0 Level mmol/L (3.5-5. 1) Chloride Level 103 mmol/L (97-110 ) Carbon Dioxide 26 Level mmol/L (21-31) Anion Gap 11 (5-13) Blood Urea 10 Nitrogen mg/dl (7-20) Creatinine 0.45 mg/dl (0.44-1. 00) Est Glomerular > 60 Filtrat mL/min (>60) Rate mL/min Glucose Level 111 mg/dl (70-220) Calcium Level 9.6 mg/dl (8.4-10. 2) Test 09/25/18 12:31 Bedside 119 Glucose mg/dL (70-220) GARTH EGAN 23, 2019 15:04
--- NOTE | 2018-09-25 16:04 | PN ---
DATE: 09/25/2018 Postop day #2, status post laparotomy, repair of the ventral hernia and abdominal wall defect with te [place] of component separation and implantation of the mesh. SUBJECTIVE: The patient does not have any specific complaint. Has been out of bed and walking aroun d, has tolerated food. Pain is under control. The patient wants to go home. OBJECTIVE: GENERAL: Awake, alert, oriented. VITAL SIGNS: Temperature maximum at 98. Today's heart rate is 77, respiration 18, blood pressure 15 6/75, saturation 98% room air. HEART: Regular. LUNGS: Clear. ABDOMEN: Soft. Dressing was changed. Wound is clean. ASSESSMENT AND PLAN: The patient with abdominal wall defect and hernia operated two days ago with co mponent separation and implantation of mesh. The patient is stable. Everything is under control. T he patient was to go home; therefore the patient from surgical point of view is discharged, also disc harged by the medical service and the related that hospice hospitalist. The patient is to continue t o take all the medications that she was to take at home for different reasons including diabetes mely itus and to call Dr. Arreola's office and make an appointment for followup. Dictated By: ROYCE VELASQUEZ MD PS/NTS Conf#: [id number] DID#: [id number] CC: KAYCEE ARREOLA MD;*EndCC*
== END 2018-09-25 16:30 | disposition home or self-care (01) | DRG 353 ==
LOC: SDS 07:43 → REC 13:59 → INTOOBSV 13:59 → MS1 16:20 → OBSVTOIN 09-24 11:05
PROVIDERS: ADMIT Surgery; ATTEND Surgery
PROC: 0KXL0ZZ Transfer Left Abdomen Muscle, Open Approach (ICD-10-PCS; 2018-09-23)
PROC: 0KXK0ZZ Transfer Right Abdomen Muscle, Open Approach (ICD-10-PCS; 2018-09-23)
PROC: 0JC80ZZ Extirpation of Matter from Abdomen Subcutaneous Tissue and Fascia, Open Approach (ICD-10-PCS; 2018-09-23)
PROC: 0WUF0JZ Supplement Abdominal Wall with Synthetic Substitute, Open Approach (ICD-10-PCS; principal; 2018-09-23 11:30)
DX: K40.31 Unilateral inguinal hernia, with obstruction, without gangrene, recurrent (principal); Q79.59 Other congenital malformations of abdominal wall; K42.9 Umbilical hernia without obstruction or gangrene; K21.9 Gastro-esophageal reflux disease without esophagitis; E11.9 Type 2 diabetes mellitus without complications; E78.5 Hyperlipidemia, unspecified; F32.9 Major depressive disorder, single episode, unspecified; E55.9 Vitamin D deficiency, unspecified; E87.5 Hyperkalemia; I10 Essential (primary) hypertension; R11.2 Nausea with vomiting, unspecified; M79.5 Residual foreign body in soft tissue
CPT/HCPCS: 80048; 80053; 82962; 84132; 84703; 85025; 88302; 88304; 88307; 99217; A4310; G0378; J0171; J0360; J0690; J1100; J1170; J2175; J2250; J2274; J2405; J2710; J3010; J3480

== ENCOUNTER 2018-10-01 08:10 | Inpatient (IN) | payer BC ==
[~2018-10-01] VITALS: Ht 167.6 cm; Wt 95.0 kg
[~2018-10-01 08:10] MED LIST changes: -CEFAZOLIN 2 GM/50 ML (PMX) 50 ML IVPB ONE; -CETI10CA PO; +ERGO500013 PO; +PHEN37.53 PO; -SOD CHLORIDE 0.9% 1,000 ML IV SCH
[2018-10-01 10:47] VITALS: Ht 167.6 cm; Wt 95.0 kg
--- NOTE | 2018-10-01 11:57 | HP ---
GARTH CASTRO 10/01/18 1157: Date/Time of Note Date/Time of Note DATE: 10/01/18 TIME: 11:57 Assessment/Plan VTE Prophylaxis SCD contraindicated: low risk/ambulating Pharmacological prophylaxis: NA/contraindicated Pharm contraindication: surgical contra Assessment/Plan Hospital Course 1. Abdominal hematoma, per CT scan from [facility] hematoma measuring 12.4 x 4.5 X 14.2 cm with a small droplets of air . S/p repair of abdominal wall defect and recurrent incarcerated incisional hernia and umbilical hernia 1 week ago. Hx of postoperative nausea/vomiting once. Nausea, vomiting, and diarrhea. 2. Hx of abdominal hernia repair with mesh 2017. 3. Hx of depression, 4. Calcified gallstones on CT, normal ALT, AST 5. Diabetes mellitus type 2, 6. Hyperlipidemia, 7. Vitamin D deficiency 8. Hx of cocaine use in past 9. Obesity 10. Hx of GERD 11. Hypokalemia 12. Hypertension Assessment/Plan -surgical consult Dr Arreola, called -NPO -no Pharmaceutical DVT prophylaxis due to possible intervention and Hematoma, SCD bilaterally -IV fluids -ambulate or SCD -IV meds for pain -GI prophylaxis Lansoprazole. - DVT prophylaxis SCD -hypoglycemic control -stop home meds -stool WBC and culture Results 24hrs Laboratory Tests Test 10/01/18 10:42 Bedside Glucose 102 HPI/ROS Admit Date/Time Admit Date/Time Oct 01, 2018 at 10:15 Hx of Present Illness This 48-year-old female with history of diabetes mellitus type 2, abdominal wall hernia and incarcerated umbilical hernia was seen in the [facility] on September 30, 2018. She reported that after she was discharged from [facility] where she was for abdominal wall repair by , she she was doing fine for 5 days, yesterday developed nonstop nausea, clear stomach content vomiting, and diarrhea. She denied any other symptoms, denies abdominal pain, melena, trauma, or hematochezia. The chart from [facility] was reviewed pulse oximetry showing 96% blood pressure 185/90 oxygen delivered on the room air temperature 96.8 pulse 80 respirations 16 BMP showed hyperglycemia to 11 normal level of BUN 18 and low potassium 3.1. Lactic acid was high at 3.9-9 1 time only PT was high 14.77. stool for culture and stool for WBC was collected but none is resulted. EKG showed normal sinus rhythm. CT scan of abdomen was performed which showed postoperative changes from recent laparotomy there is a midline abdominal muscles hematoma measuring 12.4 x4.5 X 14.2 cm with a small droplets of air, there are calcified gallstones, and no other abnormalities were found. Chest x-ray was normal patient was given Zofran, normal saline 1 L, patient was started on Zosyn and patient was transferred due to insurance purposes to [facility]. ROS Gastrointestinal: diarrhea, nausea, vomiting PMH/Family/Social Past Medical History Medical History: diabetes, hypertension Coded Allergies: No Known Allergies (Verified Allergy, Unknown, 09/23/18) Past Surgical History Past Surgical Hx: other (hernia repair) Social History Alcohol Use: none Smoking Status: Former smoker Drug Use: cocaine (past) Exam/Review of Systems Exam Constitutional: alert, oriented Eyes: nl conjunctiva Neck: supple Respiratory: clear to auscultation Cardiovascular: regular rate and rhythm Gastrointestinal: bowel sounds; No nl liver, spleen, No non-tender, No ascites, No distended, No firm, No hepatomegaly, No mass, No splenomegaly, No tender, No other CARLOTTA LATHAM MD 10/01/18 1543: Assessment/Plan Assessment/Plan Assessment/Plan 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
[2018-10-01] MEDS ORDERED: CHOLECALCIFEROL 2,000 UNIT CAP PO SCH (12:00)
[2018-10-01] MEDS ORDERED: GLUCOSE GEL 15 GRAM TUBE PO PRN ×2 (12:30)
[2018-10-01] MEDS ORDERED: GLUCOSE GEL 15 GRAM TUBE BUCCAL PRN (12:30)
[2018-10-01] MEDS ORDERED: GLUCAGON 1 MG INJ IM PRN (12:30)
[2018-10-01] MEDS ORDERED: DEXTROSE 50% 50 ML SYRINGE IV PRN ×2 (12:30)
[2018-10-01] MEDS: ASPIRIN (EC) 81 MG TAB PO SCH (13:23)
[2018-10-01] MEDS: DEXTROSE 5%-0.45% NACL 1,000 ML IV SCH (13:23)
[2018-10-01] MEDS ORDERED: IBUPROFEN 800 MG TAB PO SCH (13:30)
[2018-10-01] MEDS ORDERED: INSULIN ASPART [NOVOLOG] 3 ML PEN SC SCH (13:30)
[2018-10-01 14:03] VITALS: BP 131/71; PULSE 66; RESP 18
--- NOTE | 2018-10-01 14:43 | CONS ---
DATE OF ADMISSION: 10/01/2018 DATE OF CONSULTATION: 10/01/2018 TYPE OF CONSULTATION: Surgical. REQUESTING SERVICE: Deidra Arreola MD and I am seeing the patient for Dr. Arreola. REASON FOR CONSULTATION: Abdominal midline hematoma status post abdominal wall defect and hernia ope ration, open technique with component separation which was done on 09/23/2018. Thank you for consultation. CHIEF COMPLAINT AND HISTORY OF PRESENT ILLNESS: Apparently, this patient who had an operation for ab dominal wall hernia on 09/23/2018 in this hospital after 2 or 3 days, she was discharged in good shap e and she states that she was doing fine, eating and having bowel movement and urinating with no prob lems until yesterday afternoon when around 2:00 or 3:00, she started to have nausea and severe vomiti ng and also episodes of diarrhea, so she went to [facility]. They evaluated the patient ove r there. They got CT scan of the abdomen and pelvis which apparently showed presence of midline abdo ollie wall hematoma (of course, this is the site of the operation that was done about 8 days ago). S tool culture was sent and the patient was started on Zosyn and then the patient was transferred to [facility] because of the insurance reason. The patient states that she had minimal abdominal pain, no chills, no fever. She has had history of eating barbecue chicken from outside either the night b efore or yesterday for lunch. Otherwise, she denies having had any special kind of food or left food or any other indication beside what she has been taking routinely all over the time for diabetes and for high blood pressure. PAST MEDICAL HISTORY: Diabetes and hypertension. ALLERGIES: NOT KNOWN. MEDICATIONS: Please refer to the reconciliation list. SOCIAL HISTORY: The patient is a former smoker but is not drinking or smoking now. PHYSICAL EXAMINATION GENERAL: Today, I saw her in second floor at 1:30 until 6:00 p.m. The patient is alert, awake, orie nted, does not look in any acute distress. She states that she feels good. HEAD AND NECK: Head: Atraumatic, normocephalic. Eyes: Pupils are equal and reactive to light and accommodation. Extraocular muscles have full range of motion. Trachea is in midline. HEART: Regular rhythm. LUNGS: Clear. ABDOMEN: Somewhat protruded with fat. There is dressing over the midline incision. Dressing was re moved. The incision line is clean. No cellulitis. Bowel sound is normal on palpation and on actual ly deep palpation, abdomen is not tenderness. There is no rigidity. There is no guarding. EXTREMITIES: Lower extremity is negative. LABORATORY DATA: I do not have any labs available at this time for me here in the chart or in the co mputer. IMPRESSION: A 48-year-old female status post open ventral hernia repair with component separation an d mesh application which was done on 09/23/2018. Postop, the patient was kept in the hospital 2 to 3 days. The patient was discharged in good condition. The patient states that she has been doing fin e at home for 4 or 5 days, only to start having nausea and several episodes of vomiting yesterday aft ernoon and some diarrhea which by now diarrhea has stopped, though the patient took 2 Imodium at home . The patient was taken to [facility]. Some evaluation was done. Blood test and other manjula t were done. The patient was started on antibiotics to this hospital. Today, the patient to me is q uite stable. There is no surgical abdominal pathology appreciated at this time, though the patient m ay have hematoma at the site of operation which is between the layers of the component separation, wh ich can be expected and can be accepted pending on the result of the H and H but since the patient is very anemic, then she may require transfusion. Otherwise, plan would be to start the patient on ful l liquid diet. Continue observation tomorrow. Get a CBC and CMP and observe more. If the patient r emains asymptomatic, we may advance diet tomorrow or on Thursday and if quite stable and there is no dr op in hemoglobin and hematocrit, then the patient probably can be discharged early next week. I will let Dr. Arreola, the surgeon who did the procedure, to know about the consultation. In regard to the an tibiotics, I am not sure if we have to start the patient back on antibiotics in [facility] t hey gave her a dose of antibiotics because I was not sure what we are dealing with and what we are tr eating. The cause of nausea, vomiting and diarrhea most probably is not related to the hernia operat ion. Dictated By: ROYCE VELASQUEZ MD PS/NTS Conf#: [id number] DID#: [id number] CC: DEIDRA ARREOLA MD; RAY DODD MD;*End*
[2018-10-01] MEDS: CEFTRIAXONE 1 GM/50 ML (PMX) 50 ML IVPB SCH (16:11)
[2018-10-01] MEDS: INSULIN ASPART [NOVOLOG] 3 ML PEN SC SCH ×2 (18:03→20:20)
[2018-10-01] MEDS ORDERED: metFORMIN 500 MG TAB PO SCH (18:05)
[2018-10-01 20:17] VITALS: BP 129/73; PULSE 67; RESP 16
[2018-10-01] MEDS: IBUPROFEN 400 MG TAB PO PRN (20:18)
[2018-10-01] MEDS: SERTRALINE 100 MG TAB PO SCH (20:18)
[2018-10-01] MEDS: ATORVASTATIN 20 MG TAB PO SCH (20:18)
[2018-10-02 03:38] VITALS: BP 144/78; PULSE 64; RESP 16
[2018-10-02] MEDS ORDERED: LANSOPRAZOLE 15 MG CAP GTB SCH (06:00)
[2018-10-02] MEDS: ONDANSETRON 4 MG INJ IV PRN ×3 (06:43→23:53)
[2018-10-02] MEDS: POTASSIUM CHLORIDE 100 ML IVPB SCH ×2 (06:44→11:56)
[2018-10-02 07:30] VITALS: BP 195/101; PULSE 62; RESP 18
[2018-10-02] MEDS: INSULIN ASPART [NOVOLOG] 3 ML PEN SC SCH ×4 (08:00→20:48)
[2018-10-02] MEDS: ASPIRIN (EC) 81 MG TAB PO SCH (08:24)
[2018-10-02] MEDS: IBUPROFEN 400 MG TAB PO PRN (08:24)
[2018-10-02] MEDS: hydrALAzine 20 MG INJ IV PRN (08:24)
[2018-10-02] MEDS ORDERED: INFLUENZA VIRUS VACCINE 0.5 ML (DISPENSING) IM* ONE (09:00)
--- NOTE | 2018-10-02 09:18 | PN ---
Date/Time of Note Date/Time of Note DATE: 10/02/18 TIME: 09:16 Assessment/Plan VTE Prophylaxis Risk score (from Nsg)>0 risk: 2 SCD applied (from Ns): Yes Pharmacological prophylaxis: NA/contraindicated Pharm contraindication: low risk/ambulating Lines/Catheters IV [facility] [place] Urinary Cath still in place: No Assessment/Plan Hospital Course 1. Abdominal hematoma, per CT scan from [facility] hematoma measuring 12.4 x 4.5 X 14.2 cm with a small droplets of air . S/p repair of abdominal wall defect and recurrent incarcerated incisional hernia and umbilical hernia 1 week ago. Hx of postoperative nausea/vomiting once. Nausea, vomiting, and diarrhea. 2. Hx of abdominal hernia repair with mesh 2017. 3. Hx of depression, 4. Calcified gallstones on CT, normal ALT, AST 5. Diabetes mellitus type 2, 6. Hyperlipidemia, 7. Vitamin D deficiency 8. Hx of cocaine use in past 9. Obesity 10. Hx of GERD 11. Hypokalemia 12. Hypertension, uncontrolled now Assessment/Plan -surgical consult Dr Arreola, sen by dr Kilgore -dr Javier consult, aware -better hypertension control -full liquid diet -no Pharmaceutical DVT prophylaxis due to possible intervention and Hematoma, SCD bilaterally -c/w IV fluids -ambulate or SCD -IV meds for pain -GI prophylaxis Lansoprazole. - DVT prophylaxis SCD -hypoglycemic control -stool WBC and culture Result Diagram: 10/02/18 0452 10/02/18 0452 Results 24hrs Laboratory Tests Test 10/01/18 10:42 10/01/18 13:31 10/01/18 16:38 10/01/18 18:00 Bedside Glucose 102 108 115 Hemoglobin 12.6 Hematocrit 39.2 Test 10/01/18 20:20 10/02/18 04:52 10/02/18 07:58 Bedside Glucose 144 165 White Blood Count 9.1 Red Blood Count 4.94 Hemoglobin 12.9 Hematocrit 40.9 Mean Corpuscular 82.8 Volume Mean Corpuscular 26.1 L Hemoglobin Mean Corpuscular 31.5 L Hemoglobin Concent Red Cell 14.4 Distribution Width Platelet Count 337 # Mean Platelet Volume 9.4 Immature 0.200 Granulocytes % Neutrophils % 62.4 Lymphocytes % 22.6 Monocytes % 8.1 Eosinophils % 6.0 Basophils % 0.7 Nucleated Red Blood 0.0 Cells % Immature 0.020 Granulocytes # Neutrophils # 5.7 Lymphocytes # 2.1 Monocytes # 0.7 Eosinophils # 0.6 H Basophils # 0.1 Nucleated Red Blood 0.0 Cells # Sodium Level 143 Potassium Level 2.8 *L Chloride Level 102 Carbon Dioxide Level 31 Anion Gap 10 Blood Urea Nitrogen 10 Creatinine 0.44 Est Glomerular > 60 Filtrat Rate mL/min Glucose Level 146 Calcium Level 9.8 Total Bilirubin 0.7 Direct Bilirubin 0.00 Indirect Bilirubin 0.7 Aspartate Amino 28 Transf (AST/SGOT) Alanine 26 Aminotransferase (AL T/SGPT) Alkaline Phosphatase 90 Total Protein 7.4 Albumin 4.0 Globulin 3.40 H Albumin/Globulin 1.17 Ratio Subjective 24 Hr Interval Summary Gastrointestinal: nausea Exam/Review of Systems Exam Vitals Vital Signs Date Temp Pulse Resp B/P (MAP) Pulse Ox O2 O2 Flow FiO2 Time Delivery Rate 10/02/18 98.0 62 18 195/101 100 Room Air 07:30 (132) Intake and Output 10/01/18 10/01/18 10/02/18 1515:00 23:00 07:00 IntakeIntake Total 570 ml 480 ml BalanceBalance 570 ml 480 ml Constitutional: alert, oriented Respiratory: clear to auscultation Cardiovascular: regular rate and rhythm Gastrointestinal: soft, surgical scars Results Results 24hrs Laboratory Tests Test 10/01/18 10:42 10/01/18 13:31 10/01/18 16:38 10/01/18 18:00 Bedside Glucose 102 108 115 Hemoglobin 12.6 Hematocrit 39.2 Test 10/01/18 20:20 10/02/18 04:52 10/02/18 07:58 Bedside Glucose 144 165 White Blood Count 9.1 Red Blood Count 4.94 Hemoglobin 12.9 Hematocrit 40.9 Mean Corpuscular 82.8 Volume Mean Corpuscular 26.1 L Hemoglobin Mean Corpuscular 31.5 L Hemoglobin Concent Red Cell 14.4 Distribution Width Platelet Count 337 # Mean Platelet Volume 9.4 Immature 0.200 Granulocytes % Neutrophils % 62.4 Lymphocytes % 22.6 Monocytes % 8.1 Eosinophils % 6.0 Basophils % 0.7 Nucleated Red Blood 0.0 Cells % Immature 0.020 Granulocytes # Neutrophils # 5.7 Lymphocytes # 2.1 Monocytes # 0.7 Eosinophils # 0.6 H Basophils # 0.1 Nucleated Red Blood 0.0 Cells # Sodium Level 143 Potassium Level 2.8 *L Chloride Level 102 Carbon Dioxide Level 31 Anion Gap 10 Blood Urea Nitrogen 10 Creatinine 0.44 Est Glomerular > 60 Filtrat Rate mL/min Glucose Level 146 Calcium Level 9.8 Total Bilirubin 0.7 Direct Bilirubin 0.00 Indirect Bilirubin 0.7 Aspartate Amino 28 Transf (AST/SGOT) Alanine 26 Aminotransferase (AL T/SGPT) Alkaline Phosphatase 90 Total Protein 7.4 Albumin 4.0 Globulin 3.40 H Albumin/Globulin 1.17 Ratio Medications Medication Current Medications Dextrose/Sodium Chloride 1,000 ml @ 40 mls/hr Q24H IV Last administered on 10/01/18 13:23; Admin Dose 40 MLS/HR; Start 10/01/18 at 12:00 Sertraline HCl (Zoloft) 100 mg HS PO Last administered on 10/01/18 20:18; Admin Dose 100 MG; Start 10/01/18 at 21:00 Aspirin (Halfprin) 81 mg DAILY PO Last administered on 10/02/18 08:24; Admin Dose 81 MG; Start 10/01/18 at 12:00 Atorvastatin Calcium (Lipitor) 20 mg HS PO Last administered on 10/01/18 20:18; Admin Dose 20 MG; Start 10/01/18 at 21:00 Ondansetron HCl (Zofran Inj) 4 mg Q6H PRN IV NAUSEA AND/OR VOMITING Last administered on 10/02/18 06:43; Admin Dose 4 MG; Start 10/01/18 at 12:00 Morphine Sulfate (morphine) 2 mg Q4H PRN IV SEVERE PAIN LEVEL 7-10; Start 10/01/18 at 12:30 Miscellaneous Information 1 ea NOTE XX ; Start 10/01/18 at 12:30 Glucose (Glutose) 15 gm Q15M PRN PO DECREASED GLUCOSE; Start 10/01/18 at 12:30 Glucose (Glutose) 22.5 gm Q15M PRN PO DECREASED GLUCOSE; Start 10/01/18 at 12:30 Dextrose (D50w Syringe) 25 ml Q15M PRN IV DECREASED GLUCOSE; Start 10/01/18 at 12:30 Dextrose (D50w Syringe) 50 ml Q15M PRN IV DECREASED GLUCOSE; Start 10/01/18 at 12:30 Glucagon (Glucagen) 1 mg Q15M PRN IM DECREASED GLUCOSE; Start 10/01/18 at 12:30 Glucose (Glutose) 15 gm Q15M PRN BUCCAL DECREASED GLUCOSE; Start 10/01/18 at 12:30 Insulin Aspart (Novolog Insulin Pen) NOVOLOG *MILD* ALGORITHM WITH MEALS BEDTIME SC ; Start 10/01/18 at 18:05 Ceftriaxone Sodium 50 ml @ 100 mls/hr Q24H IVPB Last administered on 10/01/18at 16:11; Admin Dose 100 MLS/HR; Start 10/01/18 at 16:00 Ibuprofen (Motrin) 800 mg Q6 PRN PO PAIN Last administered on 10/02/18at 08:24; Admin Dose 800 MG; Start 10/01/18 at 16:30 Potassium Chloride 100 ml @ 50 mls/hr Q2H IVPB Last administered on 10/02/18at 06:44; Admin Dose 50 MLS/HR; Start 10/02/18 at 06:30; Stop 10/02/18 at 10:29 Lansoprazole (Prevacid) 15 mg DAILY@06 GTB ; Start 10/03/18 at 06:00 Hydralazine HCl (Apresoline) 10 mg Q6H PRN IV ELEVATED BLOOD PRESSURE Last administered on 10/02/18at 08:24; Admin Dose 10 MG; Start 10/02/18 at 08:30 Metoclopramide HCl (Reglan) 10 mg Q6H PRN IV NAUSEA AND/OR VOMITING; Start 10/02/18 at 09:30 Losartan Potassium (Cozaar) 50 mg DAILY PO ; Start 10/02/18 at 09:30; Status UNV Hydralazine HCl (Apresoline) 25 mg Q8 PO ; Start 10/02/18 at 14:00; Status UNV GARTH EGAN Oct 02, 2018 09:18
[2018-10-02] MEDS: METOCLOPRAMIDE 10 MG INJ IV SCH ×2 (11:30→20:41)
[2018-10-02] MEDS: LOSARTAN 50 MG TAB PO SCH (11:56)
[2018-10-02] MEDS: METOCLOPRAMIDE 10 MG INJ IV PRN (11:57)
[2018-10-02 14:15] VITALS: PULSE 69; RESP 18
[2018-10-02 14:30] VITALS: BP 108/72
[2018-10-02] MEDS: CEFTRIAXONE 1 GM/50 ML (PMX) 50 ML IVPB SCH (15:26)
[2018-10-02] MEDS: DEXTROSE 5%-0.45% NACL 1,000 ML IV SCH (15:26)
--- NOTE | 2018-10-02 18:41 | PN ---
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 Mild epigastric pain has occurred after she tried to vomit several times. No chills, no fever. Has passed gas and has had bowel movement. OBJECTIVE: GENERAL: Awake, alert, oriented x3, in no acute distress. VITAL SIGNS: Today, temperature 98, heart rate 64, respiration 18, blood pressure has been very high today. The highest one documented 195/101. Saturation 100%, room air. HEART: Regular. LUNGS: Clear. ABDOMEN: Soft. No guarding, no rigidity. Bowel sounds present. EXTREMITIES: Legs no calf tenderness. No pitting edema. LABORATORY DATA: Chemistry: Potassium was very low at 2.8, which the patient for that has received replacement. Liver enzymes and liver function is normal so far. BUN and creatinine normal. Hematology: WBC is 9100 with 62% segmented, which is normal, normal differential. Hemoglobin 12.9, hematocrit 40.9. Actually, hemoglobin is even higher than the time that she was discharged home on 09/25/2018, it was 11.2 and 36.5. ASSESSMENT AND PLAN: Patient was actually seen in [facility] for nausea and vomiting and diarrhea few days ago and then was transferred here. When she came here, she did not have any more nausea and vomiting, she felt great. I saw her yesterday and the belly was soft. Therefore, started on clear full liquid diet. But even she had some full liquids last night and she has been okay till morning, but in waiter/waitress buffet she again started having nausea and several episodes of vomiting, no diarrhea, but positive gas and positive BM. This is a 48-year-old female who had ventral hernia operation with component separation and mesh implantation on 09/23/2018 in a stable condition. She was discharged on and she was doing fine at home for 5 days until afternoon she experienced severe nausea and several episodes of vomiting and some loose bowel movement. She has been free of nausea and vomiting for probably 1 or 2 days, but again she has started to have it. At this time, since we know that the patient has gallstones, even though the Espino sign is negative, but I am going to request a HIDA scan to make sure that she does not have cholecystitis. Also, send blood for amylase and lipase. I recommend evaluation by GI colleague, apparently Dr. Dodd, PCP, has requested Dr. Javier to see the patient. For the time being, we will keep the patient n.p.o. We will continue to follow. Dictated By: ROYCE VELASQUEZ MD PS/NTS Conf#: [id number] DID#: [id number] CC: RAY DODD MD;*EndCC* MTDD
[2018-10-02 20:10] VITALS: BP 117/69; PULSE 80; RESP 18
--- NOTE | 2018-10-02 21:00 | CONS ---
DATE OF ADMISSION: 10/01/2018 DATE OF CONSULTATION: 10/02/2018 HISTORY OF PRESENT ILLNESS: A 48-year-old female with a history of diabetes mellitus, abdominal wall hernia, incarcerated umbilical hernia, had a surgery done last week by Dr. De La Rosa. The patient in the postop course was uneventful. Yesterday she had intractable nausea and vomiting. The patient went t o the emergency room at [facility]. She had a CAT scan done, which showed postoperative abe nges and a midline abdominal wall hematoma, calcified gallstone. So the patient was admitted for fur ther management. The patient was transferred from outside facility to this facility for insurance pu rpose. She had a good bowel movement, no diarrhea, no fever, no chills. ALLERGIES: NONE. REVIEW OF SYSTEMS: Negative. SOCIAL HISTORY: She does not drink alcohol. She is a former smoker. REVIEW OF SYSTEMS: Otherwise negative. PHYSICAL EXAMINATION: VITALS: Stable. HEENT: Unremarkable. NECK: Supple, no thyromegaly, no lymphadenopathy. CARDIOVASCULAR: No murmur, gallop or click. LUNGS: Clear. ABDOMEN: Soft. She has got a midline surgical scar, but no swelling seen. No peritonitis. Bowel s ounds good. EXTREMITIES: No edema. CENTRAL NERVOUS SYSTEM: Grossly within normal limits. LABORATORY DATA: All reviewed. IMPRESSION: 1. Midline hematoma after surgery. 2. Intractable nausea, vomiting, rule out diabetic gastroparesis. 3. Depression. 4. Gallstone. 5. Hyperlipidemia. 6. Cocaine use in the past. 7. Obesity. 8. GERD. 9. Hypertension. PLAN: At this point is to start the patient on Reglan. Continue PPI. We will follow. If she gerhard nues to have vomiting then we will do endoscopy. I discussed with the patient and has agreed. Dictated By: JAMIE QUEVEDO/NTS Conf#: [id number] DID#: [id number] CC: KAYCEE DE LA ROSA MD; JAMIE WATSON MD; RAY DODD MD;*EndCC*
[2018-10-02] MEDS: ATORVASTATIN 20 MG TAB PO SCH (23:05)
[2018-10-02] MEDS: SERTRALINE 100 MG TAB PO SCH (23:05)
[2018-10-02] MEDS: SUCRALFATE (100 MG/ML) 10ML CUP PO SCH (23:54)
[2018-10-03] MEDS: hydrALAzine 20 MG INJ IV PRN ×2 (00:22→23:04)
[2018-10-03 01:58] VITALS: BP 139/82; PULSE 111; RESP 18
[2018-10-03] MEDS: METOCLOPRAMIDE 10 MG INJ IV PRN ×2 (02:54→19:08)
[2018-10-03] MEDS: LANSOPRAZOLE 15 MG CAP GTB SCH (05:40)
[2018-10-03] MEDS: INSULIN ASPART [NOVOLOG] 3 ML PEN SC SCH ×4 (08:00→21:00)
[2018-10-03 08:49] VITALS: BP 94/49; PULSE 93; RESP 18
[2018-10-03] MEDS: SUCRALFATE (100 MG/ML) 10ML CUP PO SCH ×3 (09:00→21:59)
[2018-10-03] MEDS: ASPIRIN (EC) 81 MG TAB PO SCH (09:00)
[2018-10-03] MEDS: LOSARTAN 50 MG TAB PO SCH (09:00)
[2018-10-03] MEDS: POTASSIUM CHLORIDE 100 ML IVPB SCH ×2 (09:37→14:30)
[2018-10-03] MEDS: METOCLOPRAMIDE 10 MG INJ IV SCH ×2 (09:41→12:17)
[2018-10-03] MEDS: DEXTROSE 5%-0.45% NACL 1,000 ML IV SCH ×2 (12:00→23:08)
--- NOTE | 2018-10-03 12:31 | CONS ---
Assessment/Plan Assessment/Plan Assessment/Plan (Daily) IMPRESSION: 1. Midline hematoma after surgery. 2. Intractable nausea, vomiting, rule out diabetic gastroparesis. 3. Depression. 4. Gallstone. 5. Hyperlipidemia. 6. Cocaine use in the past. 7. Obesity. 8. GERD. 9. Hypertension Plan We will start her on a clear liquid diet. EGD tomorrow. Discussed with the patient and has agreed for the procedure. Case was also discussed with the surgeon Dr. Kilgore Consultation Date/Type/Reason Admit Date/Time Oct 01, 2018 at 10:15 Initial Consult Date Date/Time of Note DATE: 10/03/18 TIME: 12:30 24 HR Interval Summary Free Text/Dictation Patient threw up last night Exam/Review of Systems Exam Vitals Vital Signs Date Temp Pulse Resp B/P (MAP) Pulse Ox O2 O2 Flow FiO2 Time Delivery Rate 10/03/18 99.8 93 18 94/49 (64) 98 Room Air 08:49 Intake and Output 10/02/18 10/02/18 10/03/18 1515:00 23:00 07:00 IntakeIntake Total 550 ml BalanceBalance 550 ml Constitutional: alert, oriented, well developed Psych: no complaints, nl mood/affect Head: normocephalic, atraumatic Eyes: nl conjunctiva, EOMI, nl lids, nl sclera, PERRL ENMT: nl external ears & nose, nl lips & teeth, nl nasal mucosa & septum Neck: supple, non-tender Respiratory: clear to auscultation, normal air movement Cardiovascular: regular rate and rhythm, nl pulses Gastrointestinal: soft, nl liver, spleen, non-tender Musculoskeletal: nl extremities to inspection, nl gait and stance Extremities: normal pulses 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, nl mental status, nl speech, nl strength Skin: nl turgor; No rash or lesions Lymph: nl lymph nodes Results Result Diagram: 10/03/18 0459 10/03/18 0459 Results 24hrs Laboratory Tests Test 10/02/18 20:43 10/03/18 03:45 10/03/18 04:59 10/03/18 09:36 Bedside Glucose 124 173 137 White Blood Count 12.6 #H Red Blood Count 4.84 Hemoglobin 12.7 Hematocrit 39.6 Mean Corpuscular 81.8 L Volume Mean Corpuscular 26.2 L Hemoglobin Mean Corpuscular 32.1 Hemoglobin Concent Red Cell 14.3 Distribution Width Platelet Count 430 #H Mean Platelet Volume 10.0 Immature 0.600 H Granulocytes % Neutrophils % 71.4 Lymphocytes % 18.1 Monocytes % 8.6 Eosinophils % 1.0 Basophils % 0.3 Nucleated Red Blood 0.0 Cells % Immature 0.070 H Granulocytes # Neutrophils # 9.0 H Lymphocytes # 2.3 Monocytes # 1.1 H Eosinophils # 0.1 Basophils # 0.0 Nucleated Red Blood 0.0 Cells # Sodium Level 138 Potassium Level 2.8 *L Chloride Level 100 Carbon Dioxide Level 27 Anion Gap 11 Blood Urea Nitrogen 10 Creatinine 0.40 L Est Glomerular > 60 Filtrat Rate mL/min Glucose Level 166 Calcium Level 9.7 Test 10/03/18 12:17 Bedside Glucose 136 Medications Medication Current Medications Dextrose/Sodium Chloride 1,000 ml @ 40 mls/hr Q24H IV Last administered on 10/02/18 15:26; Admin Dose 40 MLS/HR; Start 10/01/18 at 12:00 Sertraline HCl (Zoloft) 100 mg HS PO Last administered on 10/02/18 23:05; Admin Dose 100 MG; Start 10/01/18 at 21:00 Aspirin (Halfprin) 81 mg DAILY PO Last administered on 10/02/18 08:24; Admin Dose 81 MG; Start 10/01/18 at 12:00 Atorvastatin Calcium (Lipitor) 20 mg HS PO Last administered on 10/02/18 23:05; Admin Dose 20 MG; Start 10/01/18 at 21:00 Ondansetron HCl (Zofran Inj) 4 mg Q6H PRN IV NAUSEA AND/OR VOMITING Last administered on 10/02/18at 23:53; Admin Dose 4 MG; Start 10/01/18 at 12:00 Morphine Sulfate (morphine) 2 mg Q4H PRN IV SEVERE PAIN LEVEL 7-10; Start 10/01/18 at 12:30 Miscellaneous Information 1 ea NOTE XX ; Start 10/01/18 at 12:30 Glucose (Glutose) 15 gm Q15M PRN PO DECREASED GLUCOSE; Start 10/01/18 at 12:30 Glucose (Glutose) 22.5 gm Q15M PRN PO DECREASED GLUCOSE; Start 10/01/18 at 12:30 Dextrose (D50w Syringe) 25 ml Q15M PRN IV DECREASED GLUCOSE; Start 10/01/18 at 12:30 Dextrose (D50w Syringe) 50 ml Q15M PRN IV DECREASED GLUCOSE; Start 10/01/18 at 12:30 Glucagon (Glucagen) 1 mg Q15M PRN IM DECREASED GLUCOSE; Start 10/01/18 at 12:30 Glucose (Glutose) 15 gm Q15M PRN BUCCAL DECREASED GLUCOSE; Start 10/01/18 at 12:30 Insulin Aspart (Novolog Insulin Pen) NOVOLOG *MILD* ALGORITHM WITH MEALS BEDTIME SC ; Start 10/01/18 at 18:05 Ceftriaxone Sodium 50 ml @ 100 mls/hr Q24H IVPB Last administered on 10/02/18at 15:26; Admin Dose 100 MLS/HR; Start 10/01/18 at 16:00 Ibuprofen (Motrin) 800 mg Q6 PRN PO PAIN Last administered on 10/02/18 08:24; Admin Dose 800 MG; Start 10/01/18 at 16:30 Lansoprazole (Prevacid) 15 mg DAILY@06 GTB Last administered on 10/03/18at 05:40; Admin Dose 15 MG; Start 10/03/18 at 06:00 Hydralazine HCl (Apresoline) 10 mg Q6H PRN IV ELEVATED BLOOD PRESSURE Last administered on 10/03/18at 00:22; Admin Dose 10 MG; Start 10/02/18 at 08:30 Metoclopramide HCl (Reglan) 10 mg Q6H PRN IV NAUSEA AND/OR VOMITING Last administered on 10/03/18at 02:54; Admin Dose 10 MG; Start 10/02/18 at 09:30 Losartan Potassium (Cozaar) 50 mg DAILY PO Last administered on 10/02/18at 11:56; Admin Dose 50 MG; Start 10/02/18 at 09:30 Hydralazine HCl (Apresoline) 25 mg Q8 PO Last administered on 10/03/18at 05:40; Admin Dose 25 MG; Start 10/02/18 at 14:00 Sucralfate (Carafate Susp) 1 gm BID PO Last administered on 10/03/18at 09:56; Admin Dose 1 GM; Start 10/03/18 at 00:00 JAMIE WATSON MD Oct 03, 2018 12:31
[2018-10-03 14:00] VITALS: BP 119/56; PULSE 84; RESP 17
--- NOTE | 2018-10-03 17:11 | PN ---
Date/Time of Note Date/Time of Note DATE: 10/03/18 TIME: 17:10 Assessment/Plan VTE Prophylaxis Risk score (from [facility] [place])>0 risk: 4 SCD applied (from [facility] [place]): Yes Pharmacological prophylaxis: other Pharm contraindication: other Lines/Catheters IV Catheter Type (from [facility]): Peripheral IV Urinary Cath still in place: No Assessment/Plan Hospital Course Hospital Course 1. Abdominal hematoma, per CT scan from [facility] hematoma measuring 12.4 x 4.5 X 14.2 cm with a small droplets of air . S/p repair of abdominal wall defect and recurrent incarcerated incisional hernia and umbilical hernia 1 week ago. Hx of postoperative nausea/vomiting once. Nausea, vomiting, and diarrhea. 2. Hx of abdominal hernia repair with mesh 2017. 3. Hx of depression, 4. Calcified gallstones on CT, normal ALT, AST 5. Diabetes mellitus type 2, 6. Hyperlipidemia, 7. Vitamin D deficiency 8. Hx of cocaine use in past 9. Obesity 10. Hx of GERD 11. Hypokalemia 12. Hypertension, plan bp meds egd kcl Result Diagram: 10/03/18 0459 10/03/18 0459 Results 24hrs Laboratory Tests Test 10/02/18 20:43 10/03/18 03:45 10/03/18 04:59 10/03/18 09:36 Bedside Glucose 124 173 137 White Blood Count 12.6 #H Red Blood Count 4.84 Hemoglobin 12.7 Hematocrit 39.6 Mean Corpuscular 81.8 L Volume Mean Corpuscular 26.2 L Hemoglobin Mean Corpuscular 32.1 Hemoglobin Concent Red Cell 14.3 Distribution Width Platelet Count 430 #H Mean Platelet Volume 10.0 Immature 0.600 H Granulocytes % Neutrophils % 71.4 Lymphocytes % 18.1 Monocytes % 8.6 Eosinophils % 1.0 Basophils % 0.3 Nucleated Red Blood 0.0 Cells % Immature 0.070 H Granulocytes # Neutrophils # 9.0 H Lymphocytes # 2.3 Monocytes # 1.1 H Eosinophils # 0.1 Basophils # 0.0 Nucleated Red Blood 0.0 Cells # Sodium Level 138 Potassium Level 2.8 *L Chloride Level 100 Carbon Dioxide Level 27 Anion Gap 11 Blood Urea Nitrogen 10 Creatinine 0.40 L Est Glomerular > 60 Filtrat Rate mL/min Glucose Level 166 Calcium Level 9.7 Test 10/03/18 12:17 Bedside Glucose 136 Subjective 24 Hr Interval Summary Constitutional: improved, other (abd pain less); No chills Exam/Review of Systems Exam Vitals Vital Signs Date Temp Pulse Resp B/P (MAP) Pulse Ox O2 O2 Flow FiO2 Time Delivery Rate 10/03/18 99.8 93 18 94/49 (64) 98 Room Air 08:49 Intake and Output 10/02/18 10/02/18 10/03/18 1515:00 23:00 07:00 IntakeIntake Total 550 ml BalanceBalance 550 ml Neck: supple Respiratory: clear to auscultation Cardiovascular: regular rate and rhythm Gastrointestinal: soft, bowel sounds (+) Extremities: normal pulses Results Results 24hrs Laboratory Tests Test 10/02/18 20:43 10/03/18 03:45 10/03/18 04:59 10/03/18 09:36 Bedside Glucose 124 173 137 White Blood Count 12.6 #H Red Blood Count 4.84 Hemoglobin 12.7 Hematocrit 39.6 Mean Corpuscular 81.8 L Volume Mean Corpuscular 26.2 L Hemoglobin Mean Corpuscular 32.1 Hemoglobin Concent Red Cell 14.3 Distribution Width Platelet Count 430 #H Mean Platelet Volume 10.0 Immature 0.600 H Granulocytes % Neutrophils % 71.4 Lymphocytes % 18.1 Monocytes % 8.6 Eosinophils % 1.0 Basophils % 0.3 Nucleated Red Blood 0.0 Cells % Immature 0.070 H Granulocytes # Neutrophils # 9.0 H Lymphocytes # 2.3 Monocytes # 1.1 H Eosinophils # 0.1 Basophils # 0.0 Nucleated Red Blood 0.0 Cells # Sodium Level 138 Potassium Level 2.8 *L Chloride Level 100 Carbon Dioxide Level 27 Anion Gap 11 Blood Urea Nitrogen 10 Creatinine 0.40 L Est Glomerular > 60 Filtrat Rate mL/min Glucose Level 166 Calcium Level 9.7 Test 10/03/18 12:17 Bedside Glucose 136 Medications Medication Current Medications Dextrose/Sodium Chloride 1,000 ml @ 40 mls/hr Q24H IV Last administered on 10/02/18at 15:26; Admin Dose 40 MLS/HR; Start 10/01/18 at 12:00 Sertraline HCl (Zoloft) 100 mg HS PO Last administered on 10/02/18at 23:05; Admin Dose 100 MG; Start 10/01/18 at 21:00 Aspirin (Halfprin) 81 mg DAILY PO Last administered on 10/02/18at 08:24; Admin Dose 81 MG; Start 10/01/18 at 12:00 Atorvastatin Calcium (Lipitor) 20 mg HS PO Last administered on 10/02/18at 23:05; Admin Dose 20 MG; Start 10/01/18 at 21:00 Ondansetron HCl (Zofran Inj) 4 mg Q6H PRN IV NAUSEA AND/OR VOMITING Last administered on 10/02/18at 23:53; Admin Dose 4 MG; Start 10/01/18 at 12:00 Morphine Sulfate (morphine) 2 mg Q4H PRN IV SEVERE PAIN LEVEL 7-10; Start 10/01/18 at 12:30 Miscellaneous Information 1 ea NOTE XX ; Start 10/01/18 at 12:30 Glucose (Glutose) 15 gm Q15M PRN PO DECREASED GLUCOSE; Start 10/01/18 at 12:30 Glucose (Glutose) 22.5 gm Q15M PRN PO DECREASED GLUCOSE; Start 10/01/18 at 12:30 Dextrose (D50w Syringe) 25 ml Q15M PRN IV DECREASED GLUCOSE; Start 10/01/18 at 12:30 Dextrose (D50w Syringe) 50 ml Q15M PRN IV DECREASED GLUCOSE; Start 10/01/18 at 12:30 Glucagon (Glucagen) 1 mg Q15M PRN IM DECREASED GLUCOSE; Start 10/01/18 at 12:30 Glucose (Glutose) 15 gm Q15M PRN BUCCAL DECREASED GLUCOSE; Start 10/01/18 at 12:30 Insulin Aspart (Novolog Insulin Pen) NOVOLOG *MILD* ALGORITHM WITH MEALS BEDTIME SC ; Start 10/01/18 at 18:05 Ceftriaxone Sodium 50 ml @ 100 mls/hr Q24H IVPB Last administered on 10/02/18at 15:26; Admin Dose 100 MLS/HR; Start 10/01/18 at 16:00 Ibuprofen (Motrin) 800 mg Q6 PRN PO PAIN Last administered on 10/02/18at 08:24; Admin Dose 800 MG; Start 10/01/18 at 16:30 Lansoprazole (Prevacid) 15 mg DAILY@06 GTB Last administered on 10/03/18at 05:40; Admin Dose 15 MG; Start 10/03/18 at 06:00 Hydralazine HCl (Apresoline) 10 mg Q6H PRN IV ELEVATED BLOOD PRESSURE Last administered on 10/03/18 00:22; Admin Dose 10 MG; Start 10/02/18 at 08:30 Metoclopramide HCl (Reglan) 10 mg Q6H PRN IV NAUSEA AND/OR VOMITING Last administered on 10/03/18 02:54; Admin Dose 10 MG; Start 10/02/18 at 09:30 Losartan Potassium (Cozaar) 50 mg DAILY PO Last administered on 10/02/18 11:56; Admin Dose 50 MG; Start 10/02/18 at 09:30 Hydralazine HCl (Apresoline) 25 mg Q8 PO Last administered on 10/03/18 05:40; Admin Dose 25 MG; Start 10/02/18 at 14:00 Sucralfate (Carafate Susp) 1 gm BID PO Last administered on 10/03/18 09:56; Admin Dose 1 GM; Start 10/03/18 at 00:00 RAY DODD MD Oct 03, 2018 17:11
[2018-10-03] MEDS: CEFTRIAXONE 1 GM/50 ML (PMX) 50 ML IVPB SCH (19:08)
--- NOTE | 2018-10-03 19:22 | PN ---
DATE: 10/03/2018 SUBJECTIVE: States that feels a little bit better today especially that she has not had any vomiting today. 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 Dr. Javier, GI colleague, yumiko as seen the patient and he is planning to proceed with EGD to find out about if any possible patholog y in the esophagus or stomach. PHYSICAL EXAMINATION: GENERAL: Awake, alert, oriented, in no acute distress. VITAL SIGNS: Temperature 99.8, heart rate fluctuating between 84 and 111, respirations 18, blood pre ssure 119/56, saturation 97% room air. HEART: Normal. LUNGS: Clear. ABDOMEN: Soft. No rigidity, no rebound tenderness. Bowel sound is normal. LABORATORY DATA: WBC increased to 12,600 and 31% segmented which is normal differential. Hemoglobin is stable at 12.7 and 39.6 hematocrit. Chemistry: Potassium was low today and has been decreased a s low as 2.8. BUN and creatinine are normal. IMAGING: HIDA scan was performed today and the report is as follows: There is prompt uptake of radi otracer in the liver with prompt excretion into the bile ducts. There is normal visualization of the gallbladder, consistent with patent cystic duct. Excretion into the small bowel is seen on the renato yed films. Dilated biliary to bowel transit which may be due to partial CBD obstruction, hepatocellu lar dysfunction or normal variant. Correlate clinically. ASSESSMENT AND PLAN: The patient is a 48-year-old female status post ventral hernia repair with comp onent separation technique and implantation of the mesh which was done about a week ago. The patient presented with nausea and vomiting and has been evaluated so far. We are not sure exactly what is t he cause of this though the patient has been known to have gallstones, calcified type and for this re ason got a HIDA scan which does not show occlusion of the cystic duct that means that the patient murguia s not have cholecystitis. GI colleague, Dr. Javier, is planning to do EGD tomorrow and hopefully we can find the reason for that. We will continue to follow. Dictated By: ROYCE VELASQUEZ MD PS/NTS Conf#: [id number] DID#: [id number] CC: KAYCEE DE LA ROSA MD; RAY DODD MD;*EndCC*
[2018-10-03 20:00] VITALS: BP 125/72; PULSE 73; RESP 18
[2018-10-03 20:10] VITALS: BP 125/72; PULSE 73; RESP 18
[2018-10-03] MEDS: ATORVASTATIN 20 MG TAB PO SCH (21:29)
[2018-10-03] MEDS: SERTRALINE 100 MG TAB PO SCH (21:29)
[2018-10-04] VITALS (12 sets, daily range): BP systolic 110–186; BP diastolic 69–118; PULSE 71–91; RESP 18–40
[2018-10-04] MEDS: METOCLOPRAMIDE 10 MG INJ IV PRN ×4 (02:11→22:38)
[2018-10-04] MEDS: morphine 2 MG INJ IV PRN ×2 (02:15→15:52)
[2018-10-04] MEDS: INSULIN ASPART [NOVOLOG] 3 ML PEN SC SCH ×5 (05:00→20:35)
[2018-10-04] MEDS: LANSOPRAZOLE 15 MG CAP GTB SCH (05:24)
--- NOTE | 2018-10-04 07:33 | CONS ---
Assessment/Plan Assessment/Plan Hospital Course (Demo Recall) 48 yo female Interval hx: K 2.9 today, she is getting replacement. C/O incisional pain midl ine abd. No RUQ pain. No N/V since yesterday. HIDA scan done yesterday 1. Midline hematoma after surgery. 2. Intractable nausea, vomiting, rule out diabetic gastroparesis. 3. Depression. 4. Gallstone. 5. Hyperlipidemia. 6. Cocaine use in the past. 7. Obesity. 8. GERD. 9. Hypertension HIDA 10/03 Patent cystic duct. Dilated biliary to bowel transit which may be due to partial CBD obstruction, hepatocellular dysfunction or normal variant. Correlate clinically. Plan Replace K, EGD today, Pain management, PRN anti emetics. NPO currently for procedure, continue with clear liquid diet post procedure. Pt examined and plan of care discussed with Dr. Javier Consultation Date/Type/Reason Admit Date/Time Oct 01, 2018 at 10:15 Initial Consult Date Date/Time of Note DATE: 10/04/18 TIME: 07:29 Exam/Review of Systems Exam Vitals Vital Signs Date Temp Pulse Resp B/P (MAP) Pulse Ox O2 O2 Flow FiO2 Time Delivery Rate 10/04/18 99.4 91 18 132/77 96 01:58 (95) 10/03/18 Room Air 14:00 Intake and Output 10/03/18 10/03/18 10/04/18 1515:00 23:00 07:00 IntakeIntake Total 200 ml 810 ml 1150 ml BalanceBalance 200 ml 810 ml 1150 ml Constitutional: alert, oriented Head: normocephalic Eyes: PERRL Respiratory: clear to auscultation Cardiovascular: regular rate and rhythm Gastrointestinal: soft, bowel sounds, other (midline incision) Musculoskeletal: nl extremities to inspection Neurological: nl mental status Results Result Diagram: 10/04/18 0537 10/04/18 0537 Results 24hrs Laboratory Tests Test 10/03/18 09:36 10/03/18 12:17 10/03/18 17:26 10/03/18 21:28 Bedside Glucose 137 136 143 133 Test 10/04/18 05:37 10/04/18 06:20 White Blood Count 9.2 # Red Blood Count 4.68 Hemoglobin 12.3 Hematocrit 38.8 Mean Corpuscular 82.9 Volume Mean Corpuscular 26.3 L Hemoglobin Mean Corpuscular 31.7 L Hemoglobin Concent Red Cell 14.4 Distribution Width Platelet Count 346 Mean Platelet Volume 9.4 Immature 0.400 Granulocytes % Neutrophils % 66.2 Lymphocytes % 23.1 Monocytes % 7.5 Eosinophils % 2.5 Basophils % 0.3 Nucleated Red Blood 0.0 Cells % Immature 0.040 H Granulocytes # Neutrophils # 6.1 Lymphocytes # 2.1 Monocytes # 0.7 Eosinophils # 0.2 Basophils # 0.0 Nucleated Red Blood 0.0 Cells # Prothrombin Time 14.4 Prothrombin Time 1.1 Ratio INR International 1.11 Normalized Ratio Activated 28.6 Partial Thromboplast Time Sodium Level 140 Potassium Level 2.9 *L Chloride Level 101 Carbon Dioxide Level 30 Anion Gap 9 Blood Urea Nitrogen 10 Creatinine 0.37 L Est Glomerular > 60 Filtrat Rate mL/min Glucose Level 139 Calcium Level 9.4 Total Bilirubin 0.8 Direct Bilirubin 0.00 Indirect Bilirubin 0.8 Aspartate Amino 28 Transf (AST/SGOT) Alanine 30 Aminotransferase (AL T/SGPT) Alkaline Phosphatase 80 Total Protein 6.8 Albumin 3.7 Globulin 3.10 Albumin/Globulin 1.19 Ratio Lipase 69 Bedside Glucose 120 Medications Medication Current Medications Dextrose/Sodium Chloride 1,000 ml @ 40 mls/hr Q24H IV Last administered on 10/03/18 23:08; Admin Dose 40 MLS/HR; Start 10/01/18 at 12:00 Sertraline HCl (Zoloft) 100 mg HS PO Last administered on 10/03/18 21:29; Admin Dose 100 MG; Start 10/01/18 at 21:00 Aspirin (Halfprin) 81 mg DAILY PO Last administered on 10/02/18 08:24; Admin Dose 81 MG; Start 10/01/18 at 12:00 Atorvastatin Calcium (Lipitor) 20 mg HS PO Last administered on 10/03/18 21:29; Admin Dose 20 MG; Start 10/01/18 at 21:00 Ondansetron HCl (Zofran Inj) 4 mg Q6H PRN IV NAUSEA AND/OR VOMITING Last administered on 10/02/18 23:53; Admin Dose 4 MG; Start 10/01/18 at 12:00 Morphine Sulfate (morphine) 2 mg Q4H PRN IV SEVERE PAIN LEVEL 7-10 Last administered on 10/04/18 02:15; Admin Dose 2 MG; Start 10/01/18 at 12:30 Miscellaneous Information 1 ea NOTE XX ; Start 10/01/18 at 12:30 Glucose (Glutose) 15 gm Q15M PRN PO DECREASED GLUCOSE; Start 10/01/18 at 12:30 Glucose (Glutose) 22.5 gm Q15M PRN PO DECREASED GLUCOSE; Start 10/01/18 at 12:30 Dextrose (D50w Syringe) 25 ml Q15M PRN IV DECREASED GLUCOSE; Start 10/01/18 at 12:30 Dextrose (D50w Syringe) 50 ml Q15M PRN IV DECREASED GLUCOSE; Start 10/01/18 at 12:30 Glucagon (Glucagen) 1 mg Q15M PRN IM DECREASED GLUCOSE; Start 10/01/18 at 12:30 Glucose (Glutose) 15 gm Q15M PRN BUCCAL DECREASED GLUCOSE; Start 10/01/18 at 12:30 Ceftriaxone Sodium 50 ml @ 100 mls/hr Q24H IVPB Last administered on 10/03/18 19:08; Admin Dose 100 MLS/HR; Start 10/01/18 at 16:00 Ibuprofen (Motrin) 800 mg Q6 PRN PO PAIN Last administered on 10/02/18 08:24; Admin Dose 800 MG; Start 10/01/18 at 16:30 Lansoprazole (Prevacid) 15 mg DAILY@06 GTB Last administered on 10/03/18 05:40; Admin Dose 15 MG; Start 10/03/18 at 06:00 Hydralazine HCl (Apresoline) 10 mg Q6H PRN IV ELEVATED BLOOD PRESSURE Last administered on 10/03/18 23:04; Admin Dose 10 MG; Start 10/02/18 at 08:30 Metoclopramide HCl (Reglan) 10 mg Q6H PRN IV NAUSEA AND/OR VOMITING Last administered on 10/04/18 02:11; Admin Dose 10 MG; Start 10/02/18 at 09:30 Losartan Potassium (Cozaar) 50 mg DAILY PO Last administered on 10/02/18 11:56; Admin Dose 50 MG; Start 10/02/18 at 09:30 Hydralazine HCl (Apresoline) 25 mg Q8 PO Last administered on 10/03/18 05:40; Admin Dose 25 MG; Start 10/02/18 at 14:00 Sucralfate (Carafate Susp) 1 gm BID PO Last administered on 10/03/18at 21:59; Admin Dose 1 GM; Start 10/03/18 at 00:00 Insulin Aspart (Novolog Insulin Pen) NOVOLOG *MILD* ALGORI... Q4 SC ; Start 10/04/18 at 05:00 Potassium Chloride 100 ml @ 50 mls/hr Q2H IVPB ; Start 10/04/18 at 08:00; Stop 10/04/18 at 11:59 DAMIEN RODRÍGUEZ Oct 04, 2018 07:33
[2018-10-04] MEDS: LOSARTAN 50 MG TAB PO SCH (09:00)
[2018-10-04] MEDS: ASPIRIN (EC) 81 MG TAB PO SCH (09:00)
[2018-10-04] MEDS: SUCRALFATE (100 MG/ML) 10ML CUP PO SCH ×2 (09:00→21:02)
[2018-10-04] MEDS: POTASSIUM CHLORIDE 100 ML IVPB SCH ×2 (09:30→13:49)
--- NOTE | 2018-10-04 11:24 | PN ---
DATE: 10/04/2018 SUBJECTIVE: States that does not have any nausea today. No vomiting today. No bowel movement today , but has passed flatus today, maybe had some small amount of vomiting last night. OBJECTIVE: GENERAL: Awake, alert, oriented x3. VITAL SIGNS: Temperature 98.4 at this time, but in the morning it was 99.4, heart rate 83, respirati on 18, blood pressure 110/69, saturation 95% room air. LABORATORY DATA: Sodium is 140, potassium 2.9, which is low. BUN, creatinine normal. Hematology: WBC dropped to 9200. She is normal. Normal differential 66%. Hemoglobin is stable at 12.3, hematoc rit 38.8. Coagulation: INR is 1.11, which is normal. PHYSICAL EXAMINATION: HEART: Regular. LUNGS: Clear. ABDOMEN: Soft. LOWER EXTREMITIES: Legs have no calf tenderness. No pitting edema. ASSESSMENT: A 48-year-old female status post midline laparotomy and repair of hernia with implantati on of the mesh about 10 days ago, was admitted because of severe nausea and vomiting last . Today is Thursday. The patient has had on and off episodes of nausea in this hospital and some vomitin g episodes. Dr. Javier, GI colleague has seen the patient. He is planning to do an EGD today. HIDA scan was negative for chronic cholecystitis. Therefore, we are waiting for the result of the EGD to make a decision. Meanwhile, the patient will stay n.p.o. today until the EGD. Dictated By: ROYCE VELASQUEZ MD PS/NTS Conf#: [id number] DID#: [id number] CC: RAY DODD MD; ALETHA CASTRO MD;*EndCC*
--- NOTE | 2018-10-04 11:57 | PREAC ---
Date/Time of Note Date/Time of Note DATE: 10/04/18 TIME: 11:52 Anesthesia Eval and Record Evaluation Time Pre-Procedure Interview DATE: 10/04/18 TIME: 11:52 Age 48 Sex female NPO: 8 hrs Preoperative diagnosis Intractable Vomiting Planned procedure EGD Past Medical History Past Medical History: Includes Cardio: HTN, Dyslipidemia Endo: Diabetes Renal: Other (Hypokalemia) GI: GERD, Obesity Psych: Depression Surgery & Anesthesia Issues No known issue Meds Anticoagulation: No Beta Jeana within 24 hr: No Reason Beta Jeana not given: Pt. not on B-Jeana Reported Medications Ergocalciferol (Vitamin D2) (VITAMIN D2) 50,000 Unit Capsule, [address] UNIT PO EVERY THURSDAY, CAP 09/23/18 Phentermine Hcl (Phentermine Hcl) 37.5 Mg Tablet, 37.5 MG PO DAILY, TAB 09/23/18 Aspirin* (Aspirin* (EC)) 81 Mg Tablet.dr, 81 MG PO DAILY, TAB 02/23/18 Lansoprazole* (Lansoprazole*) 15 Mg Capsule.dr, 15 MG PO DAILY, CAP 02/23/18 Empagliflozin (Jardiance) 25 Mg Tablet, 25 MG PO, TAB 02/23/18 Atorvastatin* (Atorvastatin*) 40 Mg Tablet, 20 MG PO QHS, #30 TAB 02/23/18 Sertraline Hcl* (Sertraline Hcl*) 100 Mg Tablet, 100 MG PO DAILY, #30 TAB 02/23/18 Metformin* (Glucophage*) 1,000 Mg Tablet, 1000 MG PO BID, #60 TAB 02/23/18 Current Medications Dextrose/Sodium Chloride 1,000 ml @ 40 mls/hr Q24H IV Last administered on 10/03/18at 23:08; Admin Dose 40 MLS/HR; Start 10/01/18 at 12:00 Sertraline HCl (Zoloft) 100 mg HS PO Last administered on 10/03/18at 21:29; Admin Dose 100 MG; Start 10/01/18 at 21:00 Aspirin (Halfprin) 81 mg DAILY PO Last administered on 10/02/18at 08:24; Admin Dose 81 MG; Start 10/01/18 at 12:00 Atorvastatin Calcium (Lipitor) 20 mg HS PO Last administered on 10/03/18at 21:29; Admin Dose 20 MG; Start 10/01/18 at 21:00 Ondansetron HCl (Zofran Inj) 4 mg Q6H PRN IV NAUSEA AND/OR VOMITING Last administered on 10/02/18at 23:53; Admin Dose 4 MG; Start 10/01/18 at 12:00 Morphine Sulfate (morphine) 2 mg Q4H PRN IV SEVERE PAIN LEVEL 7-10 Last administered on 10/04/18at 02:15; Admin Dose 2 MG; Start 10/01/18 at 12:30 Miscellaneous Information 1 ea NOTE XX ; Start 10/01/18 at 12:30 Glucose (Glutose) 15 gm Q15M PRN PO DECREASED GLUCOSE; Start 10/01/18 at 12:30 Glucose (Glutose) 22.5 gm Q15M PRN PO DECREASED GLUCOSE; Start 10/01/18 at 12:30 Dextrose (D50w Syringe) 25 ml Q15M PRN IV DECREASED GLUCOSE; Start 10/01/18 at 12:30 Dextrose (D50w Syringe) 50 ml Q15M PRN IV DECREASED GLUCOSE; Start 10/01/18 at 12:30 Glucagon (Glucagen) 1 mg Q15M PRN IM DECREASED GLUCOSE; Start 10/01/18 at 12:30 Glucose (Glutose) 15 gm Q15M PRN BUCCAL DECREASED GLUCOSE; Start 10/01/18 at 12:30 Ceftriaxone Sodium 50 ml @ 100 mls/hr Q24H IVPB Last administered on 10/03/18at 19:08; Admin Dose 100 MLS/HR; Start 10/01/18 at 16:00 Ibuprofen (Motrin) 800 mg Q6 PRN PO PAIN Last administered on 10/02/18at 08:24; Admin Dose 800 MG; Start 10/01/18 at 16:30 Lansoprazole (Prevacid) 15 mg DAILY@06 GTB Last administered on 10/03/18at 05:40; Admin Dose 15 MG; Start 10/03/18 at 06:00 Hydralazine HCl (Apresoline) 10 mg Q6H PRN IV ELEVATED BLOOD PRESSURE Last administered on 10/03/18at 23:04; Admin Dose 10 MG; Start 10/02/18 at 08:30 Metoclopramide HCl (Reglan) 10 mg Q6H PRN IV NAUSEA AND/OR VOMITING Last administered on 10/04/18at 09:40; Admin Dose 10 MG; Start 10/02/18 at 09:30 Losartan Potassium (Cozaar) 50 mg DAILY PO Last administered on 10/02/18at 11:56; Admin Dose 50 MG; Start 10/02/18 at 09:30 Hydralazine HCl (Apresoline) 25 mg Q8 PO Last administered on 10/03/18at 05:40; Admin Dose 25 MG; Start 10/02/18 at 14:00 Sucralfate (Carafate Susp) 1 gm BID PO Last administered on 10/03/18at 21:59; Admin Dose 1 GM; Start 10/03/18 at 00:00 Insulin Aspart (Novolog Insulin Pen) NOVOLOG *MILD* ALGORI... Q4 SC ; Start 10/04/18 at 05:00 Potassium Chloride 100 ml @ 50 mls/hr Q2H IVPB Last administered on 10/04/18at 09:30; Admin Dose 50 MLS/HR; Start 10/04/18 at 08:00; Stop 10/04/18 at 11:59 Meds reviewed: Yes Allergies Coded Allergies: No Known Allergies (Verified Allergy, Unknown, 09/23/18) Allergies Reviewed: Yes Labs/Studies Labs Reviewed: Reviewed by anesthesiologist Result Diagram: 10/04/1837 10/04/1837 Laboratory Tests 10/04/18 05:37 test: N/A (menoupause past 2 years) Studies: ECG (n/a), CXR (n/a) Pre-procedure Exam Last vitals Vital Signs Date Temp Pulse Resp B/P (MAP) Pulse Ox O2 O2 Flow FiO2 Time Delivery Rate 10/04/18 98.4 83 18 110/69 95 Room Air 08:33 (83) Airway: Adequate mouth opening, Adequate thyromental dist Mallampati: Mallampati II Teeth: Normal Lung: Normal Heart: Normal ASA Physical Status ASA physical status: 3 Emergency: None Planned Anesthetic General/MAC: MAC Planned Pain Management Parenteral pain med Pre-operative Attestations Prior to commencing anesthesia and surgery, the patient was re-evaluated, there was verification of: *The patient's identity *The results of appropriate recent lab work and preoperative vital signs *The above evaluation not changing prior to induction *Anesthetic plan, risk benefits, alternative and complications discussed with patient/family; questions answered; patient/family understands, accepts and wishes to proceed. BRENDA CADET MD Oct 04, 2018 11:57
--- NOTE | 2018-10-04 12:26 | PAC ---
Date/Time of Note Date/Time of Note DATE: 10/04/18 TIME: 12:25 Post-Anesthesia Notes Post-Anesthesia Note Last documented vital signs Vital Signs Date Temp Pulse Resp B/P (MAP) Pulse Ox O2 O2 Flow FiO2 Time Delivery Rate 10/04/18 98.4 83 18 110/69 95 Room Air 12:33 (83) Activity: WNL Respiratory function: WNL Cardiovascular function: WNL Mental status: Baseline Pain reasonably controlled: Yes Hydration appropriate: Yes Nausea/Vomiting absent: Yes BRENDA CADET MD Oct 04, 2018 12:26
[2018-10-04] MEDS: ONDANSETRON 4 MG INJ IV PRN (12:43)
--- NOTE | 2018-10-04 12:56 | PN ---
Date/Time of Note Date/Time of Note DATE: 10/04/18 TIME: 12:56 Assessment/Plan VTE Prophylaxis Risk score (from Ns)>0 risk: 4 SCD applied (from Ns): Yes Pharmacological prophylaxis: NA/contraindicated Pharm contraindication: low risk/ambulating Lines/Catheters IV Catheter Type (from [facility]): Peripheral IV Urinary Cath still in place: No Assessment/Plan Hospital Course 48 y/o with 1 . Abdominal hematoma, per [facility] scan from [facility] hematoma measuring 12.4 x 4.5 X 14.2 cm with a small droplets of air . S/p repair of abdominal wall defect and recurrent incarcerated incisional hernia and umbilical hernia 1 week ago. Hx of postoperative nausea/vomiting once. Nausea, vomiting, and diarrhea.s/p EGD with esophagela moniliaiss. duodenal ulcer, gastriti s,oesphagitis 2. Hx of abdominal hernia repair with mesh 2017. 3. Hx of depression, 4. Calcified gallstones on CT, normal ALT, AST 5. Diabetes mellitus type 2, 6. Hyperlipidemia, 7. Vitamin D deficiency 8. Hx of cocaine use in past 9. Obesity 10. Hx of GERD 11. Hypokalemia 12. Hypertension, Plan - BP control> iv hydralazine> po meds when on floor - PPI - Diflucan - Zofran - fu GI/ Surgery recs Result Diagram: 10/04/18 0537 10/04/18 0537 Results 24hrs Laboratory Tests Test 10/03/18 17:26 10/03/18 21:28 10/04/18 05:37 10/04/18 06:20 Bedside Glucose 143 133 120 White Blood Count 9.2 # Red Blood Count 4.68 Hemoglobin 12.3 Hematocrit 38.8 Mean Corpuscular 82.9 Volume Mean Corpuscular 26.3 L Hemoglobin Mean Corpuscular 31.7 L Hemoglobin Concent Red Cell Distribution 14.4 Width Platelet Count 346 Mean Platelet Volume 9.4 Immature Granulocytes 0.400 % Neutrophils % 66.2 Lymphocytes % 23.1 Monocytes % 7.5 Eosinophils % 2.5 Basophils % 0.3 Nucleated Red Blood 0.0 Cells % Immature Granulocytes 0.040 H # Neutrophils # 6.1 Lymphocytes # 2.1 Monocytes # 0.7 Eosinophils # 0.2 Basophils # 0.0 Nucleated Red Blood 0.0 Cells # Prothrombin Time 14.4 Prothrombin Time Ratio 1.1 INR International 1.11 Normalized Ratio Activated 28.6 Partial Thromboplast Time Sodium Level 140 Potassium Level 2.9 *L Chloride Level 101 Carbon Dioxide Level 30 Anion Gap 9 Blood Urea Nitrogen 10 Creatinine 0.37 L Est Glomerular Filtrat > 60 Rate mL/min Glucose Level 139 Calcium Level 9.4 Total Bilirubin 0.8 Direct Bilirubin 0.00 Indirect Bilirubin 0.8 Aspartate Amino 28 Transf (AST/SGOT) Alanine 30 Aminotransferase (ALT/ SGPT) Alkaline Phosphatase 80 Total Protein 6.8 Albumin 3.7 Globulin 3.10 Albumin/Globulin Ratio 1.19 Lipase 69 Test 10/04/18 09:44 Bedside Glucose 119 Subjective 24 Hr Interval Summary Free Text/Dictation S.P EGD today with esophageal monilaiasis, duodenal ulcer gastritis esophagitis pt seen in recovery, SBP high Exam/Review of Systems Exam Vitals Vital Signs Date Temp Pulse Resp B/P (MAP) Pulse Ox O2 O2 Flow FiO2 Time Delivery Rate 10/04/18 97.3 71 22 131/74 97 Room Air 12:08 (93) Intake and Output 10/03/18 10/03/18 10/04/18 1515:00 23:00 07:00 IntakeIntake Total 200 ml 810 ml 1150 ml BalanceBalance 200 ml 810 ml 1150 ml Exam Neck: supple Respiratory: clear to auscultation Cardiovascular: regular rate and rhythm Gastrointestinal: soft, bowel sounds (+) Extremities: normal pulses Results Results 24hrs Laboratory Tests Test 10/03/18 17:26 10/03/18 21:28 10/04/18 05:37 10/04/18 06:20 Bedside Glucose 143 133 120 White Blood Count 9.2 # Red Blood Count 4.68 Hemoglobin 12.3 Hematocrit 38.8 Mean Corpuscular 82.9 Volume Mean Corpuscular 26.3 L Hemoglobin Mean Corpuscular 31.7 L Hemoglobin Concent Red Cell Distribution 14.4 Width Platelet Count 346 Mean Platelet Volume 9.4 Immature Granulocytes 0.400 % Neutrophils % 66.2 Lymphocytes % 23.1 Monocytes % 7.5 Eosinophils % 2.5 Basophils % 0.3 Nucleated Red Blood 0.0 Cells % Immature Granulocytes 0.040 H # Neutrophils # 6.1 Lymphocytes # 2.1 Monocytes # 0.7 Eosinophils # 0.2 Basophils # 0.0 Nucleated Red Blood 0.0 Cells # Prothrombin Time 14.4 Prothrombin Time Ratio 1.1 INR International 1.11 Normalized Ratio Activated 28.6 Partial Thromboplast Time Sodium Level 140 Potassium Level 2.9 *L Chloride Level 101 Carbon Dioxide Level 30 Anion Gap 9 Blood Urea Nitrogen 10 Creatinine 0.37 L Est Glomerular Filtrat > 60 Rate mL/min Glucose Level 139 Calcium Level 9.4 Total Bilirubin 0.8 Direct Bilirubin 0.00 Indirect Bilirubin 0.8 Aspartate Amino 28 Transf (AST/SGOT) Alanine 30 Aminotransferase (ALT/ SGPT) Alkaline Phosphatase 80 Total Protein 6.8 Albumin 3.7 Globulin 3.10 Albumin/Globulin Ratio 1.19 Lipase 69 Test 10/04/18 09:44 Bedside Glucose 119 Medications Medication Current Medications Dextrose/Sodium Chloride 1,000 ml @ 40 mls/hr Q24H IV Last administered on 10/03/18 23:08; Admin Dose 40 MLS/HR; Start 10/01/18 at 12:00 Sertraline HCl (Zoloft) 100 mg HS PO Last administered on 10/03/18 21:29; Admin Dose 100 MG; Start 10/01/18 at 21:00 Aspirin (Halfprin) 81 mg DAILY PO Last administered on 10/02/18 08:24; Admin Dose 81 MG; Start 10/01/18 at 12:00 Atorvastatin Calcium (Lipitor) 20 mg HS PO Last administered on 10/03/18 21:29; Admin Dose 20 MG; Start 10/01/18 at 21:00 Ondansetron HCl (Zofran Inj) 4 mg Q6H PRN IV NAUSEA AND/OR VOMITING Last administered on 10/04/18 12:43; Admin Dose 4 MG; Start 10/01/18 at 12:00 Morphine Sulfate (morphine) 2 mg Q4H PRN IV SEVERE PAIN LEVEL 7-10 Last administered on 10/04/18 02:15; Admin Dose 2 MG; Start 10/01/18 at 12:30 Miscellaneous Information 1 ea NOTE XX ; Start 10/01/18 at 12:30 Glucose (Glutose) 15 gm Q15M PRN PO DECREASED GLUCOSE; Start 10/01/18 at 12:30 Glucose (Glutose) 22.5 gm Q15M PRN PO DECREASED GLUCOSE; Start 10/01/18 at 12:30 Dextrose (D50w Syringe) 25 ml Q15M PRN IV DECREASED GLUCOSE; Start 10/01/18 at 12:30 Dextrose (D50w Syringe) 50 ml Q15M PRN IV DECREASED GLUCOSE; Start 10/01/18 at 12:30 Glucagon (Glucagen) 1 mg Q15M PRN IM DECREASED GLUCOSE; Start 10/01/18 at 12:30 Glucose (Glutose) 15 gm Q15M PRN BUCCAL DECREASED GLUCOSE; Start 10/01/18 at 12:30 Ceftriaxone Sodium 50 ml @ 100 mls/hr Q24H IVPB Last administered on 10/03/18at 19:08; Admin Dose 100 MLS/HR; Start 10/01/18 at 16:00 Ibuprofen (Motrin) 800 mg Q6 PRN PO PAIN Last administered on 10/02/18 08:24; Admin Dose 800 MG; Start 10/01/18 at 16:30 Lansoprazole (Prevacid) 15 mg DAILY@06 GTB Last administered on 10/03/18 05:40; Admin Dose 15 MG; Start 10/03/18 at 06:00 Hydralazine HCl (Apresoline) 10 mg Q6H PRN IV ELEVATED BLOOD PRESSURE Last administered on 10/03/18at 23:04; Admin Dose 10 MG; Start 10/02/18 at 08:30 Metoclopramide HCl (Reglan) 10 mg Q6H PRN IV NAUSEA AND/OR VOMITING Last administered on 10/04/18at 09:40; Admin Dose 10 MG; Start 10/02/18 at 09:30 Losartan Potassium (Cozaar) 50 mg DAILY PO Last administered on 10/02/18at 11:56; Admin Dose 50 MG; Start 10/02/18 at 09:30 Hydralazine HCl (Apresoline) 25 mg Q8 PO Last administered on 10/03/18at 05:40; Admin Dose 25 MG; Start 10/02/18 at 14:00 Sucralfate (Carafate Susp) 1 gm BID PO Last administered on 10/03/18at 21:59; Admin Dose 1 GM; Start 10/03/18 at 00:00 Insulin Aspart (Novolog Insulin Pen) NOVOLOG *MILD* ALGORI... Q4 SC ; Start 10/04/18 at 05:00 CARLOTTA LATHAM MD Oct 04, 2018 12:56
[2018-10-04] MEDS: hydrALAzine 20 MG INJ IV PRN (13:06)
[2018-10-04] MEDS ORDERED: PROPOFOL 40 ML ONE (13:42)
[2018-10-04] MEDS: DEXTROSE 5%-0.45% NACL 1,000 ML IV SCH (13:55)
[2018-10-04] MEDS: CEFTRIAXONE 1 GM/50 ML (PMX) 50 ML IVPB SCH (15:52)
[2018-10-04] MEDS: FLUCONAZOLE 200 MG TAB PO SCH (15:52)
[2018-10-04] MEDS: ERYTHROMYCIN BASE (DR) 250 MG CAP PO SCH ×2 (15:52→21:03)
[2018-10-04] MEDS: ATORVASTATIN 20 MG TAB PO SCH (21:03)
[2018-10-04] MEDS: SERTRALINE 100 MG TAB PO SCH (21:03)
[2018-10-05 02:13] VITALS: BP 137/80; PULSE 75; RESP 19
[2018-10-05] MEDS: ERYTHROMYCIN BASE (DR) 250 MG CAP PO SCH ×2 (06:13→13:42)
[2018-10-05] MEDS: LANSOPRAZOLE 15 MG CAP GTB SCH (06:13)
[2018-10-05] MEDS: INSULIN ASPART [NOVOLOG] 3 ML PEN SC SCH ×2 (08:00→12:00)
[2018-10-05 08:26] VITALS: BP 134/76; PULSE 76; RESP 20
--- NOTE | 2018-10-05 08:27 | CONS ---
Assessment/Plan Assessment/Plan Hospital Course (Demo Recall) 48 yo female Interval hx: Pt states she feels much better. No nausea. Abd pain improved. 1. Midline hematoma after surgery. 2. Intractable nausea, vomiting -resolved 3. Depression. 4. Gallstone. 5. Hyperlipidemia. 6. Cocaine use in the past. 7. Obesity. 8. GERD. 9. Hypertension 10. S/P EGD 10/04 11. Eosinophilic esophagitis 12. Acute gastritis 13. Acute duodenal ulcer 14. Esophageal moniliasis HIDA 10/03 Patent cystic duct. Dilated biliary to bowel transit which may be due to partial CBD obstruction, hepatocellular dysfunction or normal variant. Correlate clinically. Plan Advance diet as tolerated Continue with sucralfate and prevacid Continue with anti fungal Pt examined and plan of care discussed with Dr. Javier Consultation Date/Type/Reason Admit Date/Time Oct 01, 2018 at 10:15 Initial Consult Date Date/Time of Note DATE: 10/05/18 TIME: 08:23 Exam/Review of Systems Exam Vitals Vital Signs Date Temp Pulse Resp B/P (MAP) Pulse Ox O2 O2 Flow FiO2 Time Delivery Rate 10/05/18 98.1 75 19 137/80 97 02:13 (99) 10/04/18 Room Air 15:24 Intake and Output 10/04/18 10/04/18 10/05/18 1414:59 22:59 06:59 IntakeIntake Total 500 ml 910 ml 480 ml BalanceBalance 500 ml 910 ml 480 ml Constitutional: alert, oriented Psych: no complaints Head: normocephalic ENMT: mucosa pink and moist Respiratory: clear to auscultation Cardiovascular: regular rate and rhythm Gastrointestinal: soft, tender (mild tenderness at midline incisional site, dressing clean and dry) Musculoskeletal: nl gait and stance Extremities: normal pulses Neurological: nl mental status, nl speech Results Result Diagram: 10/05/18 0546 10/05/1846 Results 24hrs Laboratory Tests Test 10/04/18 09:44 10/04/18 16:25 10/04/18 17:39 10/04/18 20:34 Bedside Glucose 119 133 115 Potassium Level 3.1 L Test 10/05/18 05:46 10/05/18 07:56 White Blood Count 8.8 Red Blood Count 4.63 Hemoglobin 12.2 Hematocrit 38.7 Mean Corpuscular Volume 83.6 Mean Corpuscular 26.3 L Hemoglobin Mean Corpuscular 31.5 L Hemoglobin Concent Red Cell Distribution 14.7 H Width Platelet Count 322 Mean Platelet Volume 9.8 Immature Granulocytes % 0.200 Neutrophils % 55.8 Lymphocytes % 31.1 Monocytes % 7.9 Eosinophils % 4.2 Basophils % 0.8 Nucleated Red Blood 0.0 Cells % Immature Granulocytes # 0.020 Neutrophils # 4.9 Lymphocytes # 2.7 Monocytes # 0.7 Eosinophils # 0.4 Basophils # 0.1 Nucleated Red Blood 0.0 Cells # Sodium Level 141 Potassium Level 3.0 L Chloride Level 104 Carbon Dioxide Level 28 Anion Gap 9 Blood Urea Nitrogen 11 Creatinine 0.39 L Est Glomerular Filtrat > 60 Rate mL/min Glucose Level 133 Calcium Level 9.4 Phosphorus Level 4.5 Magnesium Level 2.0 Total Bilirubin 0.9 Direct Bilirubin 0.00 Indirect Bilirubin 0.9 Aspartate Amino 29 Transf (AST/SGOT) Alanine 34 Aminotransferase (ALT/SG PT) Alkaline Phosphatase 80 Total Protein 6.5 Albumin 3.5 Globulin 3.00 Albumin/Globulin Ratio 1.16 Bedside Glucose 124 Medications Medication Current Medications Dextrose/Sodium Chloride 1,000 ml @ 40 mls/hr Q24H IV Last administered on 10/04/18 13:55; Admin Dose 40 MLS/HR; Start 10/01/18 at 12:00 Sertraline HCl (Zoloft) 100 mg HS PO Last administered on 10/04/18 21:03; Admin Dose 100 MG; Start 10/01/18 at 21:00 Aspirin (Halfprin) 81 mg DAILY PO Last administered on 10/02/18 08:24; Admin Dose 81 MG; Start 10/01/18 at 12:00 Atorvastatin Calcium (Lipitor) 20 mg HS PO Last administered on 10/04/18 21:03; Admin Dose 20 MG; Start 10/01/18 at 21:00 Ondansetron HCl (Zofran Inj) 4 mg Q6H PRN IV NAUSEA AND/OR VOMITING Last administered on 10/04/18 12:43; Admin Dose 4 MG; Start 10/01/18 at 12:00 Morphine Sulfate (morphine) 2 mg Q4H PRN IV SEVERE PAIN LEVEL 7-10 Last administered on 10/04/18 15:52; Admin Dose 2 MG; Start 10/01/18 at 12:30 Miscellaneous Information 1 ea NOTE XX ; Start 10/01/18 at 12:30 Glucose (Glutose) 15 gm Q15M PRN PO DECREASED GLUCOSE; Start 10/01/18 at 12:30 Glucose (Glutose) 22.5 gm Q15M PRN PO DECREASED GLUCOSE; Start 10/01/18 at 12:30 Dextrose (D50w Syringe) 25 ml Q15M PRN IV DECREASED GLUCOSE; Start 10/01/18 at 12:30 Dextrose (D50w Syringe) 50 ml Q15M PRN IV DECREASED GLUCOSE; Start 10/01/18 at 12:30 Glucagon (Glucagen) 1 mg Q15M PRN IM DECREASED GLUCOSE; Start 10/01/18 at 12:30 Glucose (Glutose) 15 gm Q15M PRN BUCCAL DECREASED GLUCOSE; Start 10/01/18 at 12:30 Ceftriaxone Sodium 50 ml @ 100 mls/hr Q24H IVPB Last administered on 10/04/18at 15:52; Admin Dose 100 MLS/HR; Start 10/01/18 at 16:00 Lansoprazole (Prevacid) 15 mg DAILY@06 GTB Last administered on 10/05/18 06:13; Admin Dose 15 MG; Start 10/03/18 at 06:00 Hydralazine HCl (Apresoline) 10 mg Q6H PRN IV ELEVATED BLOOD PRESSURE Last administered on 10/04/18at 13:06; Admin Dose 10 MG; Start 10/02/18 at 08:30 Metoclopramide HCl (Reglan) 10 mg Q6H PRN IV NAUSEA AND/OR VOMITING Last administered on 10/04/18at 22:38; Admin Dose 10 MG; Start 10/02/18 at 09:30 Losartan Potassium (Cozaar) 50 mg DAILY PO Last administered on 10/02/18at 11:56; Admin Dose 50 MG; Start 10/02/18 at 09:30 Hydralazine HCl (Apresoline) 25 mg Q8 PO Last administered on 10/05/18 06:13; Admin Dose 25 MG; Start 10/02/18 at 14:00 Sucralfate (Carafate Susp) 1 gm BID PO Last administered on 10/04/18at 21:02; Admin Dose 1 GM; Start 10/03/18 at 00:00 Erythromycin (Erythromycin) 250 mg Q8 PO Last administered on 10/05/18at 06:13; Admin Dose 250 MG; Start 10/04/18 at 14:00 Fluconazole (Diflucan) 200 mg DAILY PO Last administered on 10/04/18at 15:52; Admin Dose 200 MG; Start 10/04/18 at 14:00 Insulin Aspart (Novolog Insulin Pen) NOVOLOG *MILD* ALGORITHM WITH MEALS BEDTIME SC ; Start 10/04/18 at 18:05 DAMIEN RODRÍGUEZ Oct 05, 2018 08:27
[2018-10-05] MEDS: SUCRALFATE (100 MG/ML) 10ML CUP PO SCH (08:46)
[2018-10-05] MEDS: FLUCONAZOLE 200 MG TAB PO SCH (08:46)
[2018-10-05] MEDS: ASPIRIN (EC) 81 MG TAB PO SCH (08:46)
[2018-10-05] MEDS: LOSARTAN 50 MG TAB PO SCH (08:47)
[2018-10-05] MEDS ORDERED: POTASSIUM CHLORIDE (SR) 20 MEQ TAB PO STA (09:48)
--- NOTE | 2018-10-05 11:23 | PN ---
Date/Time of Note Date/Time of Note DATE: 10/05/18 TIME: 11:21 Assessment/Plan VTE Prophylaxis Risk score (from Nsg)>0 risk: 4 SCD applied (from Nsg): Yes Pharmacological prophylaxis: NA/contraindicated Pharm contraindication: low risk/ambulating Lines/Catheters IV [facility]from [facility] Peripheral IV Urinary Cath still in place: No Assessment/Plan Hospital Course 48 y/o with 1 . Abdominal hematoma, per CT scan from [facility] hematoma measuring 12.4 x 4.5 X 14.2 cm with a small droplets of air . S/p repair of abdominal wall defect and recurrent incarcerated incisional hernia and umbilical hernia 1 week ago. Hx of postoperative nausea/vomiting once. Nausea, vomiting, and diarrhea.s/p EGD with esophagela moniliaiss. duodenal ulcer, gastriti s,oesphagitis 2. Hx of abdominal hernia repair with mesh 2017. 3. Hx of depression, 4. Calcified gallstones on CT, normal ALT, AST 5. Diabetes mellitus type 2, 6. Hyperlipidemia, 7. Vitamin D deficiency 8. Hx of cocaine use in past 9. Obesity 10. Hx of GERD 11. Hypokalemia 12. Hypertension, Plan - advance diet - BP control> iv hydralazine> po meds when on floor - PPI/sucralfate - Diflucan - Zofran/reglan - fu GI/ Surgery recs advance diet> dc home if cleared by GI/SURGERY Result Diagram: 10/05/18 0546 10/05/18 0546 Results 24hrs Laboratory Tests Test 10/04/18 16:25 10/04/18 17:39 10/04/18 20:34 10/05/18 05:46 Potassium Level 3.1 L 3.0 L Bedside Glucose 133 115 White Blood Count 8.8 Red Blood Count 4.63 Hemoglobin 12.2 Hematocrit 38.7 Mean Corpuscular Volume 83.6 Mean Corpuscular 26.3 L Hemoglobin Mean Corpuscular 31.5 L Hemoglobin Concent Red Cell Distribution 14.7 H Width Platelet Count 322 Mean Platelet Volume 9.8 Immature Granulocytes % 0.200 Neutrophils % 55.8 Lymphocytes % 31.1 Monocytes % 7.9 Eosinophils % 4.2 Basophils % 0.8 Nucleated Red Blood 0.0 Cells % Immature Granulocytes # 0.020 Neutrophils # 4.9 Lymphocytes # 2.7 Monocytes # 0.7 Eosinophils # 0.4 Basophils # 0.1 Nucleated Red Blood 0.0 Cells # Sodium Level 141 Chloride Level 104 Carbon Dioxide Level 28 Anion Gap 9 Blood Urea Nitrogen 11 Creatinine 0.39 L Est Glomerular Filtrat > 60 Rate mL/min Glucose Level 133 Calcium Level 9.4 Phosphorus Level 4.5 Magnesium Level 2.0 Total Bilirubin 0.9 Direct Bilirubin 0.00 Indirect Bilirubin 0.9 Aspartate Amino 29 Transf (AST/SGOT) Alanine 34 Aminotransferase (ALT/SG PT) Alkaline Phosphatase 80 Total Protein 6.5 Albumin 3.5 Globulin 3.00 Albumin/Globulin Ratio 1.16 Test 10/05/18 07:56 Bedside Glucose 124 Subjective 24 Hr Interval Summary Free Text/Dictation A lot better today Tolerating the full liquid diet now Exam/Review of Systems Exam Vitals Vital Signs Date Temp Pulse Resp B/P (MAP) Pulse Ox O2 O2 Flow FiO2 Time Delivery Rate 10/05/18 98.8 76 20 134/76 96 Room Air 08:26 (95) Intake and Output 10/04/18 10/04/18 10/05/18 1515:00 23:00 07:00 IntakeIntake Total 500 ml 910 ml 480 ml BalanceBalance 500 ml 910 ml 480 ml Exam Neck: supple Respiratory: clear to auscultation Cardiovascular: regular rate and rhythm Gastrointestinal: soft, bowel sounds (+) Extremities: normal pulses Results Results 24hrs Laboratory Tests Test 10/04/18 16:25 10/04/18 17:39 10/04/18 20:34 10/05/18 05:46 Potassium Level 3.1 L 3.0 L Bedside Glucose 133 115 White Blood Count 8.8 Red Blood Count 4.63 Hemoglobin 12.2 Hematocrit 38.7 Mean Corpuscular Volume 83.6 Mean Corpuscular 26.3 L Hemoglobin Mean Corpuscular 31.5 L Hemoglobin Concent Red Cell Distribution 14.7 H Width Platelet Count 322 Mean Platelet Volume 9.8 Immature Granulocytes % 0.200 Neutrophils % 55.8 Lymphocytes % 31.1 Monocytes % 7.9 Eosinophils % 4.2 Basophils % 0.8 Nucleated Red Blood 0.0 Cells % Immature Granulocytes # 0.020 Neutrophils # 4.9 Lymphocytes # 2.7 Monocytes # 0.7 Eosinophils # 0.4 Basophils # 0.1 Nucleated Red Blood 0.0 Cells # Sodium Level 141 Chloride Level 104 Carbon Dioxide Level 28 Anion Gap 9 Blood Urea Nitrogen 11 Creatinine 0.39 L Est Glomerular Filtrat > 60 Rate mL/min Glucose Level 133 Calcium Level 9.4 Phosphorus Level 4.5 Magnesium Level 2.0 Total Bilirubin 0.9 Direct Bilirubin 0.00 Indirect Bilirubin 0.9 Aspartate Amino 29 Transf (AST/SGOT) Alanine 34 Aminotransferase (ALT/SG PT) Alkaline Phosphatase 80 Total Protein 6.5 Albumin 3.5 Globulin 3.00 Albumin/Globulin Ratio 1.16 Test 10/05/18 07:56 Bedside Glucose 124 Medications Medication Current Medications Dextrose/Sodium Chloride 1,000 ml @ 40 mls/hr Q24H IV Last administered on 10/04/18 13:55; Admin Dose 40 MLS/HR; Start 10/01/18 at 12:00 Sertraline HCl (Zoloft) 100 mg HS PO Last administered on 10/04/18 21:03; Admin Dose 100 MG; Start 10/01/18 at 21:00 Aspirin (Halfprin) 81 mg DAILY PO Last administered on 10/05/18 08:46; Admin Dose 81 MG; Start 10/01/18 at 12:00 Atorvastatin Calcium (Lipitor) 20 mg HS PO Last administered on 10/04/18 21:03; Admin Dose 20 MG; Start 10/01/18 at 21:00 Ondansetron HCl (Zofran Inj) 4 mg Q6H PRN IV NAUSEA AND/OR VOMITING Last administered on 10/04/18 12:43; Admin Dose 4 MG; Start 10/01/18 at 12:00 Morphine Sulfate (morphine) 2 mg Q4H PRN IV SEVERE PAIN LEVEL 7-10 Last administered on 10/04/18at 15:52; Admin Dose 2 MG; Start 10/01/18 at 12:30 Miscellaneous Information 1 ea NOTE XX ; Start 10/01/18 at 12:30 Glucose (Glutose) 15 gm Q15M PRN PO DECREASED GLUCOSE; Start 10/01/18 at 12:30 Glucose (Glutose) 22.5 gm Q15M PRN PO DECREASED GLUCOSE; Start 10/01/18 at 12:30 Dextrose (D50w Syringe) 25 ml Q15M PRN IV DECREASED GLUCOSE; Start 10/01/18 at 12:30 Dextrose (D50w Syringe) 50 ml Q15M PRN IV DECREASED GLUCOSE; Start 10/01/18 at 12:30 Glucagon (Glucagen) 1 mg Q15M PRN IM DECREASED GLUCOSE; Start 10/01/18 at 12:30 Glucose (Glutose) 15 gm Q15M PRN BUCCAL DECREASED GLUCOSE; Start 10/01/18 at 12:30 Ceftriaxone Sodium 50 ml @ 100 mls/hr Q24H IVPB Last administered on 10/04/18at 15:52; Admin Dose 100 MLS/HR; Start 10/01/18 at 16:00 Lansoprazole (Prevacid) 15 mg DAILY@06 GTB Last administered on 10/05/18 06:13; Admin Dose 15 MG; Start 10/03/18 at 06:00 Hydralazine HCl (Apresoline) 10 mg Q6H PRN IV ELEVATED BLOOD PRESSURE Last administered on 10/04/18 13:06; Admin Dose 10 MG; Start 10/02/18 at 08:30 Metoclopramide HCl (Reglan) 10 mg Q6H PRN IV NAUSEA AND/OR VOMITING Last administered on 10/04/18at 22:38; Admin Dose 10 MG; Start 10/02/18 at 09:30 Losartan Potassium (Cozaar) 50 mg DAILY PO Last administered on 10/05/18 08:47; Admin Dose 50 MG; Start 10/02/18 at 09:30 Hydralazine HCl (Apresoline) 25 mg Q8 PO Last administered on 10/05/18 06:13; Admin Dose 25 MG; Start 10/02/18 at 14:00 Sucralfate (Carafate Susp) 1 gm BID PO Last administered on 10/05/18 08:46; Admin Dose 1 GM; Start 10/03/18 at 00:00 Erythromycin (Erythromycin) 250 mg Q8 PO Last administered on 10/05/18 06:13; Admin Dose 250 MG; Start 10/04/18 at 14:00 Fluconazole (Diflucan) 200 mg DAILY PO Last administered on 10/05/18 08:46; Admin Dose 200 MG; Start 10/04/18 at 14:00 Insulin Aspart (Novolog Insulin Pen) NOVOLOG *MILD* ALGORITHM WITH MEALS BEDTIME SC ; Start 10/04/18 at 18:05 Potassium Chloride (Klor-Con 20) 20 meq ONCE ONCE PO ; Start 10/05/18 at 12:00; Stop 10/05/18 at 12:01 CARLOTTA LATHAM MD Oct 05, 2018 11:23
--- NOTE | 2018-10-05 11:25 | PDOCDIS ---
Discharge Instructions DIAGNOSIS Discharge Diagnosis Esophagela moniliasis Ulcer gastritis CONDITION [id number] Patient Condition: Cochl9w Fair HOME CARE INSTRUCTIONS: [id number] Diet Instructions: Usqto1p Reduced Sodium ACTIVITY: [id number] Activity Restrictions: Orprb7x Slowly Increase Activity Rest between Activity Avoid heavy lifting FOLLOW UP/APPOINTMENTS Follow-up Plan f/u Dr Javier in 1 -2 weeks f/u Dr Arreola in 1 week f/u PCP in 1-2 weeks return to ER if has abdominal pain/nausea/vomitting CARLOTTA LATHAM MD Oct 05, 2018 11:25
[2018-10-05] MEDS ORDERED: CARAS PO (11:28)
[2018-10-05] MEDS ORDERED: LANS-6 GTB (11:28)
[2018-10-05] MEDS ORDERED: LOSA50TA2 PO (11:28)
[2018-10-05] MEDS ORDERED: FLUC200T PO (11:28)
[2018-10-05] MEDS ORDERED: Metoclopramide PO (11:31)
[2018-10-05] MEDS ORDERED: HYDR-3671 PO (11:31)
[2018-10-05] MEDS ORDERED: POTASSIUM CHLORIDE (SR) 20 MEQ TAB PO ONE (12:00)
--- NOTE | 2018-10-05 16:27 | PN ---
DATE: 10/05/2018 SUBJECTIVE: She feels much better. No nausea, no vomiting, no abdominal pain. Starting diet. OBJECTIVE: GENERAL: Awake, alert, oriented. VITAL SIGNS: Temperature maximum 98.8, heart rate 76, respirations 20, blood pressure 134/76, satura tion 96% on room air. HEART: Regular. LUNGS: Clear. ABDOMEN: Soft. EXTREMITIES: Legs: No pitting edema. LABORATORY DATA: Sodium 141, potassium 3, slightly low. BUN and creatinine normal. Hematology: WB C down to 8.8 which is normal with normal differential 55%. Hemoglobin stable at 12.2, hematocrit 38 .7. ASSESSMENT AND PLAN: This 48-year-old female who had operation for ventral hernia and abdominal wall defect with component separation technique and implantation of the mesh, about 7 days' post-operatio n, was readmitted to this hospital because of severe nausea and vomiting and pain in epigastric. The patient was evaluated. A GI consultation was obtained yesterday. Dr. Javier did EGD and he found g astritis and acute duodenal ulcer so the patient's cause of nausea and vomiting is understood now. T he patient can be discharged from a surgical standpoint and also the medical service discharged her w ith PPI, Reglan and other medications. The patient should continue to follow Dr. Arreola and Dr. Adarsh shen calling their office and making appointment for followup for the hernia operation and also Dr. Joey hernandez. We are calling Dr. Javier's office for followup in regard to the gastritis and duodenal ulcer. I personally saw the patient and talked to the patient. The patient has been taking Motrin 800 mg fo r the pain and I informed her that she should not take Motrin or Advil as pain medication but she can take Tylenol. The patient understood. The patient can be discharged from a surgical standpoint. Dictated By: ROYCE VELASQUEZ MD PS/NTS Conf#: [id number] DID#: [id number] CC: RAY DODD MD;*EndCC*
--- NOTE | 2018-10-05 20:37 | DS ---
DATE OF ADMISSION: 10/01/2018 DATE OF DISCHARGE: 10/05/2018 HISTORY OF PRESENT ILLNESS AND HOSPITAL COURSE: This is a 48-year-old female with past medical histo ry of diabetes, abdominal wall hernia, incarcerated umbilical hernia, was seen in [facility] on 09/30/2018. She reported she was discharged from [facility], where she had abd ominal wall repair by Dr. De La Rosa. She was doing fine for a few days, then she developed nonstop nausea and diarrhea. She denies any other symptoms. There, the patient was found to have BUN of 18, potass ium of 3.1. Stool for culture and stool for WBC was collected. EKG showed normal sinus rhythm. The patient had CT of the abdomen that showed postop changes with recent laparotomy midline abdominal mu scle hematoma measuring 12.5 x 4.7 x 14.2 cm with small droplets of air. The patient was started on Zosyn and was transferred to [facility] due to insurance reasons. The patient had a CT ther e which had showed no obstruction. The patient was having low grade fevers. The patient was started on IV antibiotics. Surgery consultation was obtained from Dr. Kilgore. According to him, the patien t had presented with nausea and vomiting, not sure exactly what cause of this. The patient also had a HIDA scan done that showed dilated biliary to bowel transit which may be due to partial CBD obstruc tion, hepatocellular dysfunction or normal variant, had a patent cystic duct. LFTs were checked and normal limit. The patient was seen by GI consultation because of persistent nausea, vomiting and had EGD that was performed that showed the patient had esophageal moniliasis, acute duodenal ulcer, mode rate gastritis, esophagitis, LA class 3 esophagitis. The patient was started on PPI, sucralfate, melissa thromycin and Reglan. The patient's condition got stabilized and was also started on Diflucan. Charissa l pathology was pending. The patient was tolerating diet. The patient was cleared by surgery and fo r the hematoma, they wanted to follow the patient as an outpatient. Currently, the patient is stable to be discharged home. FINAL DISCHARGE DIAGNOSES: 1. Nausea, vomiting, status post EGD that showed esophageal moniliasis, duodenal ulcer, esophagitis, gastritis. 2. Hypertension, uncontrolled. The patient was started on losartan and hydralazine. 3. Abdominal wall hematoma to be followed by surgery as an outpatient, cleared by Dr. Kilgroe. 4. Depression. 5. Hyperlipidemia. 6. Obesity. 7. Gastroesophageal reflux disease. 8. History of cocaine use in the past. 9. History of abdominal hernia repair with mesh. DISCHARGE CONDITION: Stable. DISCHARGE DIET: Stevens diet. DISCHARGE MEDICATIONS: 1. Fluconazole 200 mg p.o. daily for 7 days. 2. Hydralazine 10 mg p.o. q.8. 3. Lansoprazole 15 mg p.o. daily. 4. Losartan 50 mg daily. 5. Reglan 10 mg p.o. q.6 p.r.n. nausea, vomiting. 6. Sucralfate 1 gram p.o. b.i.d. for 14 days. Continue medications: 1. Aspirin 81. 2. Atorvastatin 20. 3. Jardiance 25. 4. Ergocalciferol. 5. Metformin 1000 b.i.d. 6. Phentermine 37.5 7. Sertraline 100. FOLLOWUP: The patient was instructed to follow up with PCP 1 to 2 weeks, GI, Dr. Javier in 1 to 2 we eks, follow up with Dr. De La Rosa in 1 week. DISCHARGE INSTRUCTIONS: The patient was instructed to return to the ER if severe abdominal pain, master sea, vomiting, fevers and chills. Dictated By: CARLOTTA POWERS/JAI Conf#: [id number] DID#: [id number] CC: KAYCEE DE LA ROSA MD; RAY DODD MD;*[facility]*
== END 2018-10-05 15:40 | disposition home or self-care (01) | DRG 392 ==
LOC: PP2 10:15
PROVIDERS: ADMIT Internal Medicine Nephrology; ATTEND Internal Medicine Nephrology
PROC: 0DD58ZX Extraction of Esophagus, Via Natural or Artificial Opening Endoscopic, Diagnostic (ICD-10-PCS; 2018-10-04)
PROC: 0DB68ZX Excision of Stomach, Via Natural or Artificial Opening Endoscopic, Diagnostic (ICD-10-PCS; principal; 2018-10-04 13:00)
DX: K29.00 Acute gastritis without bleeding (principal); K26.3 Acute duodenal ulcer without hemorrhage or perforation; B37.81 Candidal esophagitis; K91.870 Postprocedural hematoma of a digestive system organ or structure following a digestive system procedure; K21.0 Gastro-esophageal reflux disease with esophagitis; K80.80 Other cholelithiasis without obstruction; I10 Essential (primary) hypertension; E87.6 Hypokalemia; E66.9 Obesity, unspecified; E55.9 Vitamin D deficiency, unspecified; E78.5 Hyperlipidemia, unspecified; E11.9 Type 2 diabetes mellitus without complications; F32.9 Major depressive disorder, single episode, unspecified; Y83.8 Other surgical procedures as the cause of abnormal reaction of the patient, or of later complication, without mention of misadventure at the time of the procedure; Z68.33 Body mass index [BMI] 33.0-33.9, adult; Z87.891 Personal history of nicotine dependence
CPT/HCPCS: 78226; 80048; 80053; 82962; 83690; 83735; 84100; 84132; 85014; 85018; 85025; 85610; 85730; 88104; 88305; 88312; 90686; A9537; J0360; J0696; J1815; J2270; J2405; J2765; J3480; J7042